=== PATIENT | male | born 1975 | race Caucasian/White ===

== ENCOUNTER 2025-01-13 10:11 | Inpatient (IN) ==
[2025-01-13] MEDS: SODIUM CHLORIDE 0.9% 1,000 ML IV ONE ×2 (10:20→14:16)
--- NOTE | 2025-01-13 10:29 | Emergency Department Note ---
Impression & Plan Unresponsive, Alcohol intoxication, Endotracheally intubated, Elevated lactic acid level ED Provider Note HISTORY OF PRESENT ILLNESS: Patient is a 49-year-old male presenting with unresponsiveness. Patient reportedly was found sleeping in his car in the parking lot at [employer] where he is employed. He had an empty bottle of vodka and an empty bottle of mouthwash next to him. Staff who called [phone] state that they believed that he bought the mouthwash bottle today. Patient has a history of alcohol abuse. Unknown any other history or any other potential coingestions, as patient is unresponsive. Fingerstick was 106 on EMS arrival. Patient's ex- named Toña (phone number [phone]) called the ER after being told he was sent here by patient's boss. She reports that the patient has been "on a crook" for "a while." She states that he has been drinking quite heavily for the last few weeks. She is unsure how much he drinks at a time or per day. ROS: as above PHYSICAL EXAM: Constitutional: Patient appears in no acute distress. Patient smell strongly of alcohol and mint. HENT: Head: Normocephalic and atraumatic. Eyes: Pupils dilated. Mouth/Throat: Mucous membranes moist. Neck: Trachea midline. Neck supple. Cardiovascular: RRR, No murmurs, rubs or gallops. Intact distal pulses. Pulmonary/Chest: No respiratory distress. Breath sounds clear and equal bilaterally. No wheezes or rales. Abdominal: Abdomen soft, no tenderness, rebound or guarding. Musculoskeletal: No edema, tenderness or deformity noted. Skin: Warm and dry. No rash, erythema, pallor or cyanosis Neurological: Patient is unresponsive. GCS of 3. Has no gag reflex present. MDM: - Vitals signs stable - History obtained via EMS, given patient's unresponsiveness. History as above. - Chronic conditions affecting care: Alcohol abuse - Differential diagnoses include, but are not limited to: Intracranial hemorrhage; CVA; alcohol intoxication; drug intoxication; ACS; electrolyte abnormality - Order placed for continuous cardiac monitoring. At this time, monitor showed rate of 85 bpm with normal sinus rhythm, per my interpretation. - External medical records reviewed. - EKG image interpreted by myself showed normal sinus rhythm. Rate 106 bpm. QT 322. No acute ischemic changes. - Laboratory workup interpreted by myself showed normal WBC; normal PT/INR; elevated lactic acid (3.0); elevated anion gap (12); normal troponin; elevated AST (61); elevated alcohol (634.2)- - CXR post intubation shows appropriate placement of the ET tube, per my interpretation. - UA negative for infection - UDS negative - VBG normal - CT head wo contrast negative for acute intracranial hemorrhage. Noted to have subtle diffuse blurring of the lindsey-white interface concerning for potential anoxic ischemic brain injury, per radiology. - Patient given 1L NS post intubation. He was started on propofol for sedation postintubation and required frequent boluses, as he started to move his extremities and start bucking his ET tube after intubation. He was given a 5 mg IV Versed bolus. Patient's blood pressures did trend down and another 500 cc of normal saline was ordered and propofol drip was decreased. - Given patient's endotracheally intubated status, did discuss case with tube cutter operator on-call, Dr. Haney, at 11:56. Patient will be admitted to the ICU with ICU consult service helping to manage his mechanical ventilation. - Discussion was had with dependency case manager about patient's case and need for admission - Hospitalist consulted for admission - Patient admitted to [facility] for further evaluation and management. PROCEDURE: Endotracheal Intubation Indication: Unresponsive; GCS 3. The patient was on 100% oxygen via NRB prior to the procedure. Suction, airway equipment, RSI drugs, respiratory equipment, and appropriate personnel were prepared prior to the initiation of the procedure. A time out was taken. No sedation was applied, given that the patient has no gag reflex. The airway was easily visualized utilizing a S3 glide scope blade. Initially unable to pass the tube secondary to cord spasms, so 100 milligrams IV succinylcholine was pushed for paralysis. A 7.5 size ETT tube was placed atraumatically to 25 cm using standard technique. The cuff inflated without signs of malfunction. On initial assessment, there appeared to be more prominent breath sounds on the right and so the ET tube was retracted to 23 at the lip. There were bilateral breath sounds, positive colormetric change, no gastric sounds, a good capnography waveform, and post procedure pulse oximetry was 98%. Post intubation sedation was administered using propofol. There were no complications. ASSESSMENT AND PLAN: Diagnosis: Unresponsive; alcohol intoxication; endotracheally intubated; elevated lactic acid Plan: Admit Past Med/Surg History Problem List (Updated 01/13/25 @ 12:20 by Missy Tamayo MD) Elevated lactic acid level (Acute) Endotracheally intubated (Acute) Alcohol intoxication (Acute) Unresponsive (Acute) Right inguinal hernia (Acute) Alcohol intoxication (Acute) Altered mental status (Acute) Social History Smoking Status: Unknown if ever smoked Preferred Language: Bel[place] Feels Safe at Home: Yes Allergies Allergies Allergy/AdvReac Type Severity Reaction Status Date / Time No Known Allergies Allergy Unverified 11/25/24 19:48 Home Meds Home Medications Medication Instructions Recorded Confirmed No Known Home Medications 08/09/24 01/13/25 Results & Data (ED) Vital Signs Vital Signs - 24 hr 01/13/25 10:08 01/13/25 10:21 01/13/25 10:27 Temperature 36.4 C L Temperature Source Axillary Pulse Rate 115 H 87 110 H Pulse Rate [Apical] Pulse Rate from SpO2 Sensor Respiratory Rate 8 L Blood Pressure 137/100 Blood Pressure [Right Arm] Blood Pressure Mean 112 Blood Pressure Mean [Right Arm] Blood Pressure Position Lying Blood Pressure Position [Right Arm] Pulse Oximetry 96 98 Oxygen Delivery Method Room Air Mechanical Vent Fraction of Inspired Oxygen 30 SaO2/FiO2 Ratio 326 Sepsis Recent Fever Within 48 Hours No Sepsis New/Unexplained Change in Mental Status N/A Sepsis Action Taken by Nursing No Action Required End-Tidal CO2 01/13/25 10:33 01/13/25 10:58 01/13/25 11:00 Temperature Temperature Source Pulse Rate 80 Pulse Rate [Apical] 94 H Pulse Rate from SpO2 Sensor Respiratory Rate 16 16 Blood Pressure Blood Pressure [Right Arm] 130/98 Blood Pressure Mean Blood Pressure Mean [Right Arm] 108 Blood Pressure Position Blood Pressure Position [Right Arm] Pulse Oximetry 99 97 Oxygen Delivery Method Mechanical Vent Room Air Fraction of Inspired Oxygen 30 30 SaO2/FiO2 Ratio Sepsis Recent Fever Within 48 Hours Sepsis New/Unexplained Change in Mental Status Sepsis Action Taken by Nursing End-Tidal CO2 41 01/13/25 11:12 01/13/25 11:33 01/13/25 11:45 Temperature Temperature Source Pulse Rate 86 92 H 96 H Pulse Rate [Apical] Pulse Rate from SpO2 Sensor 86 93 H 97 H Respiratory Rate 17 13 16 Blood Pressure 130/98 131/90 102/75 Blood Pressure [Right Arm] Blood Pressure Mean 108 103 83 Blood Pressure Mean [Right Arm] Blood Pressure Position Blood Pressure Position [Right Arm] Pulse Oximetry 98 99 98 Oxygen Delivery Method Fraction of Inspired Oxygen SaO2/FiO2 Ratio Sepsis Recent Fever Within 48 Hours Sepsis New/Unexplained Change in Mental Status Sepsis Action Taken by Nursing End-Tidal CO2 39 38 39 01/13/25 11:55 01/13/25 12:03 Temperature Temperature Source Pulse Rate 98 H Pulse Rate [Apical] Pulse Rate from SpO2 Sensor 99 H Respiratory Rate 16 Blood Pressure 99/76 L Blood Pressure [Right Arm] 90/70 L Blood Pressure Mean 83 Blood Pressure Mean [Right Arm] 76 Blood Pressure Position Blood Pressure Position [Right Arm] Lying Pulse Oximetry 98 Oxygen Delivery Method Fraction of Inspired Oxygen SaO2/FiO2 Ratio Sepsis Recent Fever Within 48 Hours Sepsis New/Unexplained Change in Mental Status Sepsis Action Taken by Nursing End-Tidal CO2 38 Laboratory Data 01/13/25 10:31 01/13/25 10:31 Lab Results 01/13/25 01/13/25 01/13/25 Range/Units 10:26 10:31 10:37 WBC 6.58 (4.8-10.8) K/ul RBC 5.03 (4.70-6.10) M/uL Hgb 16.6 (14.0-18.0) g/dl POC Hgb 16.3 (14.0-18.0) g/dl Hct 46.6 (42.0-52.0) % POC Hct 48 (42-52) % MCV 92.6 (80.0-100.0) fL MCH 33.0 (25.0-34.0) pg MCHC 35.6 (32.0-36.0) g/dL RDW Std Deviation 44.4 (36.4-46.3) fL RDW Coeff of Janice 13.1 (11.5-14.5) % Plt Count 294 (130-400) K/uL MPV 7.9 L (9.4-12.4) fL Immature Gran % (Auto) 0.6 % Neut % (Auto) 62.9 % Lymph % (Auto) 26.3 % [place] % (Auto) 8.2 % Eos % (Auto) 0.5 % Baso % (Auto) 1.5 % Neut # (Auto) 4.14 (1.40-6.50) K/uL Lymph # (Auto) 1.73 (1.20-3.40) K/uL [place] # (Auto) 0.54 (0.11-0.59) K/uL Eos # (Auto) 0.03 (0.00-0.50) K/uL Baso # (Auto) 0.10 (0.00-0.20) K/uL Immature Gran # (Auto) 0.04 (0.01-0.20) K/uL PT 10.3 (9.0-12.0) Seconds INR 0.9 (0.9-1.1) VBG pH 7.38 (7.36-7.41) VBG pCO2 50 (38-50) mmHg VBG pO2 53 mmHg VBG HCO3 30 mmol/L VBG O2 Saturation 80.4 % VBG Base Excess 3.4 mEq/L POC Sodium 140 (135-144) mmol/L Sodium 141 (136-145) mmol/L POC Potassium 3.8 (3.3-5.0) mmol/L Potassium 3.6 (3.5-5.1) mmol/L POC Chloride 100 L (101-112) mmol/L Chloride 100 (98-107) mmol/L Carbon Dioxide 29 (21-32) mmol/L POC Total CO2 26 (24-31) mmol/L Anion Gap 12 H (3-11) POC Anion Gap 19.0 (16-25) mmol/L POC BUN 5 L (7-18) mg/dl BUN 7 (6-23) mg/dl Creatinine 0.71 (0.6-1.4) mg/dl POC Creatinine 1.6 H (0.6-1.3) mg/dl Est Cr Clr Drug Dosing Not Reportable eGFR 111.08 BUN/Creatinine Ratio 9.9 L (10-20) Glucose 115 H (70-99(Fasting)) mg/dl POC Glucose (other) 116 H (70-99) mg/dl Lactate 3.0 H* (0.4-2.0) mmol/L Calcium 8.8 (8.6-10.3) mg/dl POC Ioniz Calcium Jed 1.01 L (1.12-1.32) mmol/l Magnesium 2.4 (1.7-2.4) mg/dl Total Bilirubin 0.5 (0.2-1.0) mg/dl AST 61 H (13-39) U/L ALT 49 (7-52) U/L Alkaline Phosphatase 52 (34-104) U/L Troponin I High Sens 5.5 (0-20) pg/ml Total Protein 6.7 (6.0-8.3) gm/dl Albumin 4.5 (3.4-5.0) gm/dl Globulin 2.2 L (2.5-4.0) gm/dl Albumin/Globulin Ratio 2.0 (0.9-2) TSH 1.337 (0.300-4.500) uIu/ml Urine Color Urine Appearance (Clear) Urine pH (4.5-7.5) Ur Specific [place] (1.000-1.030) Urine Protein (Negative) Urine Glucose (UA) (Negative) Urine Ketones (Negative) Urine Blood (Negative) Urine Nitrite (Negative) Urine Bilirubin (Negative) Urine Urobilinogen (Negative) Ur Leukocyte Esterase (Negative) Urine WBC (Auto) (0-5) /hpf Urine RBC (Auto) (0-2) /hpf U Hyaline Cast (Auto) (0-2) /lpf U Epithel Cells (Auto) (0-2) /hpf Urine Bacteria (Auto) (None Seen) Urine Comment Urine Opiates Screen (Neg) Ur Methadone, Qual (Neg) Urine Fentanyl Screen (Neg) Urine Barbiturates (Neg) Ur Phencyclidine (PCP) (Neg) U Amphetamin/Meth Scrn (Neg) MDMA (Ecstasy) Screen (Neg) U Benzodiazepines Scrn (Neg) Ur Cocaine Metabolite (Neg) U Marijuana (THC) Screen (Neg) Ethyl Alcohol mg/dL 634.2 H (<10.0) mg/dl 01/13/25 Range/Units Unknown WBC (4.8-10.8) K/ul RBC (4.70-6.10) M/uL Hgb (14.0-18.0) g/dl POC Hgb (14.0-18.0) g/dl Hct (42.0-52.0) % POC Hct (42-52) % MCV (80.0-100.0) fL MCH (25.0-34.0) pg MCHC (32.0-36.0) g/dL RDW Std Deviation (36.4-46.3) fL RDW Coeff of Janice (11.5-14.5) % Plt Count (130-400) K/uL MPV (9.4-12.4) fL Immature Gran % (Auto) % Neut % (Auto) % Lymph % (Auto) % [place] % (Auto) % Eos % (Auto) % Baso % (Auto) % Neut # (Auto) (1.40-6.50) K/uL Lymph # (Auto) (1.20-3.40) K/uL [place] # (Auto) (0.11-0.59) K/uL Eos # (Auto) (0.00-0.50) K/uL Baso # (Auto) (0.00-0.20) K/uL Immature Gran # (Auto) (0.01-0.20) K/uL PT (9.0-12.0) Seconds INR (0.9-1.1) VBG pH (7.36-7.41) VBG pCO2 (38-50) mmHg VBG pO2 mmHg VBG HCO3 mmol/L VBG O2 Saturation % VBG Base Excess mEq/L POC Sodium (135-144) mmol/L Sodium (136-145) mmol/L POC Potassium (3.3-5.0) mmol/L Potassium (3.5-5.1) mmol/L POC Chloride (101-112) mmol/L Chloride (98-107) mmol/L Carbon Dioxide (21-32) mmol/L POC Total CO2 (24-31) mmol/L Anion Gap (3-11) POC Anion Gap (16-25) mmol/L POC BUN (7-18) mg/dl BUN (6-23) mg/dl Creatinine (0.6-1.4) mg/dl POC Creatinine (0.6-1.3) mg/dl Est Cr Clr Drug Dosing eGFR BUN/Creatinine Ratio (10-20) Glucose (70-99(Fasting)) mg/dl POC Glucose (other) (70-99) mg/dl Lactate (0.4-2.0) mmol/L Calcium (8.6-10.3) mg/dl POC Ioniz Calcium Jed (1.12-1.32) mmol/l Magnesium (1.7-2.4) mg/dl Total Bilirubin (0.2-1.0) mg/dl AST (13-39) U/L ALT (7-52) U/L Alkaline Phosphatase (34-104) U/L Troponin I High Sens (0-20) pg/ml Total Protein (6.0-8.3) gm/dl Albumin (3.4-5.0) gm/dl Globulin (2.5-4.0) gm/dl Albumin/Globulin Ratio (0.9-2) TSH (0.300-4.500) uIu/ml Urine Color Yellow Urine Appearance Clear (Clear) Urine pH 7.0 (4.5-7.5) Ur Specific [place] 1.018 (1.000-1.030) Urine Protein Trace H (Negative) Urine Glucose (UA) Negative (Negative) Urine Ketones Negative (Negative) Urine Blood Negative (Negative) Urine Nitrite Negative (Negative) Urine Bilirubin Negative (Negative) Urine Urobilinogen Negative (Negative) Ur Leukocyte Esterase Negative (Negative) Urine WBC (Auto) 0-5 (0-5) /hpf Urine RBC (Auto) 0-2 (0-2) /hpf U Hyaline Cast (Auto) 0-2 (0-2) /lpf U Epithel Cells (Auto) 0-2 (0-2) /hpf Urine Bacteria (Auto) None Seen (None Seen) Urine Comment Urine Opiates Screen Neg (Neg) Ur Methadone, Qual Neg (Neg) Urine Fentanyl Screen Neg (Neg) Urine Barbiturates Neg (Neg) Ur Phencyclidine (PCP) Neg (Neg) U Amphetamin/Meth Scrn Neg (Neg) MDMA (Ecstasy) Screen Neg (Neg) U Benzodiazepines Scrn Neg (Neg) Ur Cocaine Metabolite Neg (Neg) U Marijuana (THC) Screen Neg (Neg) Ethyl Alcohol mg/dL (<10.0) mg/dl Administered Medications Propofol (Diprivan) 1,000 mg in 100 mls @ 13.755 mls/hr IV .[id number] [facility]; Protocol Stop: 01/16/25 10:44 Last Titration: 01/13/25 12:22 Dose: 20 mcg/kg/min, 7.9 mls/hr Documented By: Titration: 01/13/25 12:03 Dose: 35 mcg/kg/min, 13.8 mls/hr Documented By: Titration: 01/13/25 11:41 Dose: 45 mcg/kg/min, 17.7 mls/hr Documented By: Titration: 01/13/25 11:33 Dose: 40 mcg/kg/min, 15.7 mls/hr Documented By: Titration: 01/13/25 11:28 Dose: 35 mcg/kg/min, 13.8 mls/hr Documented By: Titration: 01/13/25 11:22 Dose: 30 mcg/kg/min, 11.8 mls/hr Documented By: Titration: 01/13/25 11:12 Dose: 25 mcg/kg/min, 9.8 mls/hr Documented By: Titration: 01/13/25 10:58 Dose: 20 mcg/kg/min, 7.9 mls/hr Documented By: Titration: 01/13/25 10:47 Dose: 15 mcg/kg/min, 5.9 mls/hr Documented By: Titration: 01/13/25 10:42 Dose: 10 mcg/kg/min, 3.9 mls/hr Documented By: Admin: 01/13/25 10:36 Dose: 5.09 mcg/kg/min, 2 mls/hr Documented By: ANDRE Co-signed By: MONICA Propofol (Propofol Bolus From Bag) 20 mg IV Q5M PRN PRN Reason: Sedation Stop: 01/16/25 10:42 Last Admin: 01/13/25 11:41 Dose: 20 mg Documented By: MONICA Co-signed By: GCC Admin: 01/13/25 11:33 Dose: 20 mg Documented By: MONICA Co-signed By: GCC Admin: 01/13/25 11:28 Dose: 20 mg Documented By: MONICA Co-signed By: GCC Admin: 01/13/25 11:22 Dose: 20 mg Documented By: MONICA Co-signed By: GCC Admin: 01/13/25 11:12 Dose: 20 mg Documented By: MONICA Co-signed By: GCC Admin: 01/13/25 10:58 Dose: 20 mg Documented By: KR Co-signed By: MONICA Admin: 01/13/25 10:47 Dose: 20 mg Documented By: KR Co-signed By: MONICA Admin: 01/13/25 10:42 Dose: 20 mg Documented By: KR Co-signed By: MONICA Admin: 01/13/25 10:36 Dose: 20 mg Documented By: ANDRE Co-signed By: MONICA Discontinued Medications Sodium Chloride (Nss) 1,000 mls @ 999 mls/hr IV .Q1H1M ONE Stop: 01/13/25 11:28 Last Infusion: 01/13/25 11:30 Dose: Infused Documented By: Admin: 01/13/25 10:20 Dose: 999 mls/hr Documented By: ANDRE Midazolam HCl (Midazolam Hcl 5 Mg/Ml 2ml Vial) 5 mg IV NOW STA Stop: 01/13/25 11:38 Last Admin: 01/13/25 11:39 Dose: 5 mg Documented By: MONICA Miscellaneous (Rapid Sequence Induction Bag) Confirm Administered Dose 1 each N/A .STK-MED ONE Stop: 01/13/25 10:12 Last Admin: 01/13/25 11:02 Dose: Not Given Documented By: ANDRE Propofol (Propofol Iv Emulsion 10 Mg/Ml 100 Ml Vial) Confirm Administered Dose 1,000 mg IV .STK-MED ONE Stop: 01/13/25 10:26 Last Admin: 01/13/25 11:02 Dose: Not Given Documented By: ANDRE Imaging Data Radiologist's Impression: Chest X-Ray 01/13/25 10:27 XR chest 1V portable CLINICAL HISTORY: post intubation COMPARISON STUDY: 05/16/2007 FINDINGS: Endotracheal tube tip is just above the thoracic inlet. Heart size and pulmonary vasculature are normal. No effusion, consolidation, or pneumothorax. IMPRESSION: Endotracheal tube tip is just above the thoracic inlet. ACT 112: Negative or not required by law. Electronically signed by: Manuel Aguilar M.D. 01/13/2025 10:[address] 01/13/25 10:28 CT head/brain wo con CLINICAL HISTORY: 49 years-old Male with unresponsive. Acutely altered mental status TECHNIQUE: Multiple axial CT images of the head were obtained without contrast. A dose lowering technique was utilized adhering to the principles of ALARA. CT DOSE: 625.8 mGy.cm COMPARISON: 05/16/2007 FINDINGS: No acute intracranial hemorrhage, midline shift, intracranial mass, hydrocephalus, or abnormal extra-axial collection. There is equivocal subtle diffuse blurring of the lindsey-white interface. The calvarium is intact. Partially imaged endotracheal tube with nasopharyngeal secretions. The paranasal sinuses, mastoid air cells, and middle ear cavities are clear. IMPRESSION: 1. No acute intracranial hemorrhage, midline shift, hydrocephalus or brain herniation. 2. Equivocal subtle diffuse blurring of the lindsey-white interface suspicious for anoxic ischemic brain injury. ACT 112: Negative or not required by law. The above report was generated using voice recognition software. It may contain grammatical, syntax or spelling errors. Electronically signed by: Terry Bermudez M.D. 01/13/2025 11:39 AM Discharge Plan Visit Data Chief Complaint: Unresponsive Stated Complaint: UNRESPONSIVE ED Provider: Missy Tamayo Discharge Problem: Unresponsive, Alcohol intoxication, Endotracheally intubated, Elevated lactic acid level Condition: Critical Forms Stand Alone Forms: My App[employer] Prescriptions Prescriptions: No Action No Known Home Medications Referrals Referrals: PCP,NO [Primary Care Provider] -
[2025-01-13] MEDS: propofoL 1,000 MG/100 ML VIAL IV SCH (10:36)
[2025-01-13] MEDS: PROPOFOL BOLUS FROM BAG IV PRN (10:36)
[2025-01-13 10:39] LABS: iSTAT Creatinine 1.6 mg/dl (0.6-1.3); iSTAT Hemoglobin 16.3 g/dl (14.0-18.0); iSTAT Ionized Calcium 1.01 mmol/l (1.12-1.32); iSTAT Potassium 3.8 mmol/L (3.3-5.0)
[2025-01-13 10:41] LABS: Base Excess VBG 3.4 mEq/L; HCO3 VBG 30 mmol/L; Oxygen Saturation VBG 80.4 %; PCO2 VBG 50 mmHg (38-50); PO2 VBG 53 mmHg; pH VBG 7.38 (7.36-7.41)
[2025-01-13] MEDS ORDERED: STAT IV Infusion **Titration per Protocol STA (10:43)
--- NOTE | 2025-01-13 10:44 | XRay Report ---
XR chest 1V portable CLINICAL HISTORY: post intubation COMPARISON STUDY: 05/16/2007 FINDINGS: Endotracheal tube tip is just above the thoracic inlet. Heart size and pulmonary vasculatur e are normal. No effusion, consolidation, or pneumothorax. IMPRESSION: Endotracheal tube tip is just above the thoracic inlet. ACT 112: Negative or not required by law. Electronically signed by: Manuel Aguilar M.D. 01/13/2025 10:43 AM
[2025-01-13 10:46] LABS: Basophils % (auto) 1.5 %; Eosinophils # (auto) 0.03 K/uL (0.00-0.50); Eosinophils % (auto) 0.5 %; Hematocrit (blood only) 46.6 % (42.0-52.0); Hemoglobin 16.6 g/dl (14.0-18.0); Immature Granulocytes # (auto) 0.04 K/uL (0.01-0.20); Immature Granulocytes % (auto) 0.6 %; Lymphocytes # (auto) 1.73 K/uL (1.20-3.40); Lymphocytes % (auto) 26.3 %; Mean Corpuscular Hgb Conc 35.6 g/dL (32.0-36.0); Mean Corpuscular Volume 92.6 fL (80.0-100.0); Mean Platelet Volume 7.9 fL (9.4-12.4); Monocytes # (auto) 0.54 K/uL (0.11-0.59); Monocytes % (auto) 8.2 %; Neutrophils # (auto) 4.14 K/uL (1.40-6.50); Neutrophils % (auto) 62.9 %; Platelet Count 294 K/uL (130-400); RDW Coefficient of Variation 13.1 % (11.5-14.5); RDW Standard Deviation 44.4 fL (36.4-46.3); Red Blood Count 5.03 M/uL (4.70-6.10); White Blood Count 6.58 K/ul (4.8-10.8)
[2025-01-13 10:54] LABS: INR 0.9 (0.9-1.1); Prothrombin Time 10.3 Seconds (9.0-12.0)
[2025-01-13] MEDS: RAPID SEQUENCE INDUCTION BAG ONE (11:02)
[2025-01-13] MEDS: PROPOFOL IV EMULSION 10 MG/ML 100 ML VIAL IV ONE (11:02)
[2025-01-13 11:11] LABS: Appearance Urine Clear (Clear); Bacteria Urine Automated None Seen (None Seen); Bilirubin Urine Negative (Negative); Blood Urine Negative (Negative); Cast Urine Automated 0-2 /lpf (0-2); Color Urine Yellow; Epithelial Cell Urine Auto 0-2 /hpf (0-2); Glucose Urine UA Negative (Negative); Ketones Urine Negative (Negative); Leukocyte Esterase Urine Negative (Negative); Nitrite Urine Negative (Negative); Protein Urine Trace (Negative); RBC Urine Automated 0-2 /hpf (0-2); Specific Gravity Urine 1.018 (1.000-1.030); Urobilinogen Urine Negative (Negative); WBC Urine Automated 0-5 /hpf (0-5)
[2025-01-13 11:12] LABS: Albumin Level 4.5 gm/dl (3.4-5.0); Anion Gap 12 (3-11); Bilirubin,Total 0.5 mg/dl (0.2-1.0); Calcium 8.8 mg/dl (8.6-10.3); Carbon Dioxide 29 mmol/L (21-32); Chloride 100 mmol/L (98-107); Magnesium 2.4 mg/dl (1.7-2.4); Potassium 3.6 mmol/L (3.5-5.1); Sodium 141 mmol/L (136-145)
[2025-01-13 11:18] LABS: Alanine Aminotransferase 49 U/L (7-52); Alkaline Phosphatase 52 U/L (34-104); Aspartate Aminotransferase 61 U/L (13-39); BUN Creatinine Ratio 9.9 (10-20); Blood Urea Nitrogen 7 mg/dl (6-23); Globulin 2.2 gm/dl (2.5-4.0); Glucose 115 mg/dl (70-99(Fasting)); Total Protein 6.7 gm/dl (6.0-8.3)
[2025-01-13 11:28] LABS: Troponin I High Sensitivity 5.5 pg/ml (0-20)
[2025-01-13 11:38] LABS: Thyroid Stimulating Hormone 1.337 uIu/ml (0.300-4.500)
[2025-01-13] MEDS: MIDAZOLAM HCL 5 MG/ML 2ML VIAL IV STA (11:39)
--- NOTE | 2025-01-13 11:40 | CT Scan Report ---
CT head/brain wo con CLINICAL HISTORY: 49 years-old Male with unresponsive. Acutely altered mental status TECHNIQUE: Multiple axial CT images of the head were obtained without contrast. A dose lowering tech nique was utilized adhering to the principles of ALARA. CT DOSE: 625.8 mGy.cm COMPARISON: 05/16/2007 FINDINGS: No acute intracranial hemorrhage, midline shift, intracranial mass, hydrocephalus, or abnormal extra- axial collection. There is equivocal subtle diffuse blurring of the lindsey-white interface. The calvarium is intact. Partially imaged endotracheal tube with nasopharyngeal secretions. The paran leonie sinuses, mastoid air cells, and middle ear cavities are clear. IMPRESSION: 1. No acute intracranial hemorrhage, midline shift, hydrocephalus or brain herniation. 2. Equivocal subtle diffuse blurring of the lindsey-white interface suspicious for anoxic ischemic brain injury. ACT 112: Negative or not required by law. The above report was generated using voice recognition software. It may contain grammatical, syntax o r spelling errors. Electronically signed by: Terry Bermudez M.D. 01/13/2025 11:39 AM
[2025-01-13 11:54] LABS: Amphetamines+Metham, Urine Neg (Neg); Barbiturates, Urine Neg (Neg); Benzodiazepine, Urine Neg (Neg); Cocaine, Urine Neg (Neg); Fentanyl, Urine Neg (Neg); MDMA (Ecstacy), Urine Neg (Neg); Marijuana, Urine Neg (Neg); Methadone, Urine Neg (Neg); Opiate, Urine Neg (Neg); Phencyclidine, Urine Neg (Neg)
[2025-01-13] MEDS: SODIUM CHLORIDE 0.9% 500 ML IV ONE (12:26)
--- NOTE | 2025-01-13 12:48 | History & Physical Report ---
<Statement entered by Jayjay Welch, DO - 01/13/25 13:42> I have seen and examined the patient and have discussed the case with the advance practice provider. I have reviewed the advanced practitioner's documentation, and I agree with, and take responsibility for that plan of care. Patient seen and evaluated while still in the ED. Patient sedated and on the ventilator. Vital signs reviewed HEENT: Intubated Lungs: Decreased, no wheezes CV: S1-S2 Patient with severe alcohol intoxication with concern for anoxic brain injury and metabolic encephalopathy. 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 Date of Service January 13, 2025 Assessment & Plan (1) Respiratory failure requiring intubation: Plan: 49 year old male with unknown medical history presenting with unresponsiveness, GCS 3, negative gag reflex. He was found unresponsive in his car at [facility]'s parking lot; discovered by his co-workers who reported patient has history of alcohol abuse. Empty bottle of vodka and Listerine found in the car. Transferred here via EMS. Respiratory failure requiring intubation 2/2 metabolic encephalopathy and alcohol intoxication: * Admit to ICU for further management of ventilatory support * Continue ventilatory support with Propofol- wean as tolerated for extubation * Initiate AWSS when weaning sedation # Elevated Lactic acid level: * Initial lactate 3.0 and trended down with ventilatory support * Trend per ICU protocol # Anoxic brain injury: * CT Brain showing anoxic brain injury without hemorrhage, midline shift, hydrocephalus or brain herniation; unclear etiology * Possible injury with alcohol intoxication- patient with nasal bridge injury * Consider further imaging once stable DVT Ppx: SCDs ordered and defer to ICU for additional DVT ppx Code status: Full code PCP: No PCP Dispo: Admit to ICU Patient seen in collaboration with Dr. Welch. I spent a total of 45 minutes co ordinating, documenting and providing care for this patient excluding time spent in the performance of separately billed services or time spent by another provider/QHP. (2) Toxic metabolic encephalopathy: (3) Alcohol intoxication: (4) Elevated lactic acid level: (5) Anoxic brain injury: History of Present Illness Primary Care Provider: NO PCP 49 year old male with unknown medical history presenting with unresponsiveness, GCS 3, negative gag reflex. He was found unresponsive in his car at [facility] parking lot; discovered by his co-workers who reported patient has history of alcohol abuse. Empty bottle of vodka and Listerine found in the car. Transferred here via EMS. In the emergency department, he had a GCS 3 with negative gag reflex and immediately intubated. Propofol started and titrated. IV fluids ~500 given. BP's in 80-90's/70's. Lactate elevated at 3. Urine ETOH elevated 634. Head CT showing no acute intracranial hemorrhage, midline shift, hydrocephalus or brain herniation; equivocal subtle diffuse blurring of the lindsey-white interface suspicious for anoxic ischemic brain injury. EKG showing possible ectopy, atrial tachycardia with vent rate 103, QTc 427. Patient without family or surrogate at the bedside. History obtained from clinical record. Allergies Allergy/AdvReac Type Severity Reaction Status Date / Time No Known Allergies Allergy Unverified 11/25/24 19:48 Home Medications Medication Instructions Recorded Confirmed Type No Known Home Medications 08/09/24 01/13/25 History Past Med/Surg History Problem List (Updated 01/13/25 @ 13:06 by LUCAS Mercedes) Anoxic brain injury Toxic metabolic encephalopathy Respiratory failure requiring intubation Elevated lactic acid level (Acute) Endotracheally intubated (Acute) Alcohol intoxication (Acute) Unresponsive (Acute) Right inguinal hernia (Acute) Alcohol intoxication (Acute) Altered mental status (Acute) Social History Smoking Status: Unknown if ever smoked Preferred Language: Guatemalan Feels Safe at Home: Yes Review of Systems Review of Systems: Unobtainable due to endotracheal tube Physical Exam Physical Exam: VITALS: Reviewed. WEIGHT/BMI reviewed. GEN: Well-developed. HEENT -Head: NC/AT; nasal bridge injury -Ears: External ears are normal. Normal TMs. -Nose: Normal nares. -Mouth and throat: MMM. Normal gums, muc dyana, palate NECK: Supple, with no masses. CV: Regular rate. S1, S2 without murmur,rubs, gallops. LUNGS: Clear and equal bilaterally. ETT intact with ventilatory support. Symmetric chest rise ABD: Soft, nondistended, Active bowel sounds, no masses or organomegaly. : N/A SKIN: Warm, well perfused. laceration nose. MSK: No apparent deformities or joint swelling. EXT: No clubbing, cyanosis, or edema. NEURO: Unable to determine d/t altered level of consciousness with sedation Propofol Results & Data Results & Data Vital Signs (Past 12 Hours) Vital Signs Temp Pulse Pulse Resp BP BP Pulse Ox 01/13/25 12:22 88 16 88/71 L 97 01/13/25 12:22 88/71 L 01/13/25 12:18 89 16 91/72 L 97 01/13/25 12:03 90/70 L 01/13/25 12:00 91 H 16 90/70 L 97 01/13/25 11:55 98 H 16 99/76 L 98 01/13/25 11:45 96 H 16 102/75 98 01/13/25 11:33 92 H 13 131/90 99 01/13/25 11:12 86 17 130/98 98 01/13/25 11:00 94 H 16 130/98 97 01/13/25 10:58 80 16 99 01/13/25 10:33 01/13/25 10:27 110 H 98 01/13/25 10:21 87 01/13/25 10:08 36.4 C L 115 H 8 L 137/100 96 O2 Del Method FiO2 01/13/25 12:22 01/13/25 12:22 01/13/25 12:18 01/13/25 12:03 01/13/25 12:00 01/13/25 11:55 01/13/25 11:45 01/13/25 11:33 01/13/25 11:12 01/13/25 11:00 Room Air 01/13/25 10:58 30 01/13/25 10:33 Mechanical Vent 30 01/13/25 10:27 Mechanical Vent 30 01/13/25 10:21 01/13/25 10:08 Room Air Laboratory Results Short CBC 01/13/25 Range/Units 10:31 WBC 6.58 (4.8-10.8) K/ul Hgb 16.6 (14.0-18.0) g/dl Hct 46.6 (42.0-52.0) % Plt Count 294 (130-400) K/uL BMP 01/13/25 10:31 Sodium 141 Potassium 3.6 Chloride 100 Carbon Dioxide 29 BUN 7 Creatinine 0.71 Glucose 115 H Calcium 8.8 Liver Function 01/13/25 Range/Units 10:31 Total Bilirubin 0.5 (0.2-1.0) mg/dl AST 61 H (13-39) U/L ALT 49 (7-52) U/L Alkaline Phosphatase 52 (34-104) U/L Albumin 4.5 (3.4-5.0) gm/dl Urine 01/13/25 Range/Units Unknown Urine Color Yellow Urine Appearance Clear (Clear) Urine pH 7.0 (4.5-7.5) Ur Specific [place] 1.018 (1.000-1.030) Urine Protein Trace H (Negative) Urine Glucose (UA) Negative (Negative) Diagnostic Findings Chest X-Ray 01/13/25 10:27 XR chest 1V portable CLINICAL HISTORY: post intubation COMPARISON STUDY: 05/16/2007 FINDINGS: Endotracheal tube tip is just above the thoracic inlet. Heart size and pulmonary vasculature are normal. No effusion, consolidation, or pneumothorax. IMPRESSION: Endotracheal tube tip is just above the thoracic inlet. ACT 112: Negative or not required by law. Electronically signed by: Manuel Aguilar M.D. 01/13/2025 10:[address] 01/13/25 10:28 CT head/brain wo con CLINICAL HISTORY: 49 years-old Male with unresponsive. Acutely altered mental status TECHNIQUE: Multiple axial CT images of the head were obtained without contrast. A dose lowering technique was utilized adhering to the principles of ALARA. CT DOSE: 625.8 mGy.cm COMPARISON: 05/16/2007 FINDINGS: No acute intracranial hemorrhage, midline shift, intracranial mass, hydrocephalus, or abnormal extra-axial collection. There is equivocal subtle diffuse blurring of the lindsye-white interface. The calvarium is intact. Partially imaged endotracheal tube with nasopharyngeal secretions. The paranasal sinuses, mastoid air cells, and middle ear cavities are clear. IMPRESSION: 1. No acute intracranial hemorrhage, midline shift, hydrocephalus or brain herniation. 2. Equivocal subtle diffuse blurring of the lindsey-white interface suspicious for anoxic ischemic brain injury. ACT 112: Negative or not required by law. The above report was generated using voice recognition software. It may contain grammatical, syntax or spelling errors. Electronically signed by: Terry Bermudez M.D. 01/13/2025 11:39 AM Code Status & VTE Plan VTE Prophylaxis Plan VTE Prophylaxis will be ordered: Yes
--- NOTE | 2025-01-13 13:23 | Electrocardiogram Report ---
Test Reason : Blood Pressure : */* mmHG Vent. Rate : 106 BPM Atrial Rate : 106 BPM P-R Int : 120 ms QRS Dur : 84 ms QT Int : 322 ms P-R-T Axes : -56 85 24 degrees QTcB Int : 427 ms Unusual P axis, possible ectopic atrial tachycardia Septal infarct , age undetermined Abnormal ECG When compared with ECG of 09-Aug-2024 09:49, Ectopic atrial rhythm has replaced Sinus rhythm Confirmed by Andrew Griffin ([id number]) on 01/13/2025 1:22:42 PM Referred By: Confirmed By: Andrew Griffin
--- NOTE | 2025-01-13 13:38 | Critical Care Consultation ---
Date of Consultation January 13, 2025 Assessment & Plan (1) Toxic metabolic encephalopathy: (2) Respiratory failure requiring intubation: (3) Elevated lactic acid level: (4) Alcohol intoxication: (5) Unresponsive: Plan Jace Kamara 49-year-old male with past medical history of alcohol use disorder but otherwise no other known medical history; who presented to [facility] on 01/13/2025 after being found unresponsive in car with acute alcohol toxicity. Neuro: Acute Encephalopathy related to acute alcohol toxicity -Blood alcohol level 634 -Tox screen negative -GCS improved and patient extubated Concern for alcohol withdrawal CIWA protocol started CV: -No acute issues -SR w/o ischemia -Hemodynamically stable Pulm: Acute respiratory failure related to inability to protect airway from severe encephalopathy -Patient intubated in ED for GCS of 3. -Vent settings: VC-AC [id number] -Extubated shortly after arrival to ICU on room air. Spo2 > 92%. GI: Dysphagia; FEN -Bedside swallow eval prior to PO intake once extubated -If fails bedside eval then speech therapy consult. -MIVF : -No acute issues -Lira in place -Creatinine 0.71. BUN 7 -Monitor Heme: -No acute issue -Monitor CBC qam Endo: Possible stress hyperglycemia -BG 115-120 -Monitor and start insulin as appropriate ID: -WBC 6.58 -Afebrile -Monitor fever curve, culture, and treat as appropriate. Prophylaxis: -GI prophylaxis not indicated -DVT prophylaxis with Lovenox -SCD for mechanical DVT prophylaxis. Disposition: ICU for continued evaluation and management of acute alcohol toxicity with encephalopathy requiring mechanical ventilation and risk of withdrawal. Patient full code. Patient updated to plan of care by ICU provider on 01/13/2025. Patient states that he does not have anyone he wants notified or updated regarding his status. Patient does have an Ex who called regarding his status in the ED. Supervising Physician Co-Signing Physician Notes I saw and evaluated the patient with LUCAS Ramirez, and agree with findings and plan as documented in the note. 49-year-old male was admitted to the hospital for altered mental status Past medical history: Alcohol abuse Patient was intubated in the ER for GCS of 3. And sent to the ICU for further care Patient's mental status significantly improved after being intubated. He was on sedation but answering all the questions appropriately and following the commands. His initial alcohol level was 636 which is significantly elevated. Plan was made to extubate him as only reason for intubation was GCS of 3 which has significantly improved now. After extubation patient was resting comfortably in the room. Heart rate was in the low 90s. Respiratory rate in the mid to high teens. Systolic blood pressure in the 120s. Saturating 96-97% on room air. Was answering all the questions appropriately Denied any chest pain, no shortness of breath, no abdominal pain. No unusual headache or blurry vision. Constitutional: No acute distress HEENT: EOMI, PERRLA Respiratory system: Decreased air entry bilaterally, no wheeze, no rhonchi, mild crackles bilateral lower lobes CVS: S1-S2 positive, no murmurs or gallops, tachycardia Abdomen: Soft, nontender, nondistended, positive bowel sounds x4 Extremities: +2 pulses bilaterally radialis/ dorsalis pedis, no cyanosis, no edema Neuro: Awake alert oriented x3 Psych: Normal mood and affect G/U: Positive Lira Plan: Patient successfully extubated He came in with alcohol intoxication. He is at high risk for DTs in the near future Would recommend to continue with CIWA protocol NS show CT of the head showed possible anoxic brain injury but there is no true patient is answering all the questions appropriately. There is high probability that patient might need want to sign out AMA. He drinks 1 pint of vodka on a daily basis. Case was discussed with primary team I have personally spent 59 minutes of critical care time in the direct management of this patient. This is a life/limb threatening event. This includes time spent evaluating patient, direct bedside care, chart review, placing orders, interpretation of diagnostic studies, discussion with consultants, patient, and family members, as well as other required patient management activities. This time is exclusive of all separately billable procedures, and teaching time and separate from and in addition to any other critical care service time. Please note the above document was generated using voice recognition software. It may contain grammatical, syntax or spelling errors. History of Present Illness Reason for Consultation: Acute alcohol intoxication causing encephalopathy requiring mechanical ventilation. History of Present Illness Jace Kamara 49-year-old male with past medical history of alcohol use disorder but otherwise no other known medical history; who presented to [facility] on 01/13/2025 after being found unresponsive in car. Of note the patient was recently seen and discharged from [facility] on 11/25/2024 with acute alcohol intoxication and at the time the patient admitted to drinking roughly 1 pint of vodka per day. On 01/13/2025 the patient's coworkers found the patient unresponsive in [facility]'s parking lo. EMS was called and the patient was brought to [facility] ED. On evaluation GCS was noted to be 3 and the patient was intubated for airway protection. Patient started on propofol gtt post intubation. EKG performed with no ischemic changes noted. CT head w/o contrast showed no acute intracranial abnormality. Labs revealed an alcohol level of 634. Lactate initially 3 but after 1.5 liters of crystalloid downtrended to 2.7. Patient brought to the ICU for continued evaluation and management of acute alcohol toxicity with encephalopathy requiring mechanical ventilation and risk of withdrawal. Allergies Allergy/AdvReac Type Severity Reaction Status Date / Time No Known Allergies Allergy Unverified 11/25/24 19:48 Home Medications Medication Instructions Recorded Confirmed Type No Known Home Medications 08/09/24 01/13/25 History Patient History Social History Smoking Status: Never smoker Hx Alcohol Use: Yes Alcohol type: hard liquor Hx Substance Use: No Preferred Language: Slovenian Communication Ability: Effective Technical Aid Required: No Beliefs That Will Affect Care: None Current Living Situation: Alone Feels Safe at Home: Yes Safety Concerns: Feels Safe At This Time Assistive Devices: None Review of Systems 2 Review of Systems: Unobtainable due to endotracheal tube and Unobtainable due to reduced consciousness Physical Exam 2 Physical Exam: VITALS: Reviewed. WEIGHT/BMI reviewed. GEN: Patient lying in bed intubated, sedated, and in no apparent distress. HEENT: NC/AT; eyes with anisocoria L>R but brisk, Normal nares. NECK: Supple, with no masses. trachea midline. CV: RRR, no m/r/g. S1/S2 present. LUNGS: CTAB, no w/r/c. Chest rise symmetrical. ABD: Soft, NT/ND, NBS, no masses or organomegaly. : Lira in place draining yellow clear urine. SKIN: Warm, well perfused. No skin rashes or abnormal lesions. MSK: No deformities EXT: No clubbing, cyanosis, or edema. NEURO: Sedated, spontaneously moving all extremities 5/5, opening eyes with stim. Results & Data Results & Data Vital Signs (Past 12 Hours) Vital Signs Temp Pulse Pulse Resp BP BP Pulse Ox 01/13/25 12:35 16 95/69 L 98 01/13/25 12:35 83 16 98 01/13/25 12:22 88 16 88/71 L 97 01/13/25 12:22 88/71 L 01/13/25 12:18 89 16 91/72 L 97 01/13/25 12:03 90/70 L 01/13/25 12:00 91 H 16 90/70 L 97 01/13/25 11:55 98 H 16 99/76 L 98 01/13/25 11:45 96 H 16 102/75 98 01/13/25 11:33 92 H 13 131/90 99 01/13/25 11:12 86 17 130/98 98 01/13/25 11:00 94 H 16 130/98 97 01/13/25 10:58 80 16 99 01/13/25 10:33 01/13/25 10:27 110 H 98 01/13/25 10:21 87 01/13/25 10:08 36.4 C L 115 H 8 L 137/100 96 O2 Del Method FiO2 01/13/25 12:35 Mechanical Vent 01/13/25 12:35 Mechanical Vent 01/13/25 12:22 01/13/25 12:22 01/13/25 12:18 01/13/25 12:03 01/13/25 12:00 01/13/25 11:55 01/13/25 11:45 01/13/25 11:33 01/13/25 11:12 01/13/25 11:00 Room Air 01/13/25 10:58 30 01/13/25 10:33 Mechanical Vent 30 01/13/25 10:27 Mechanical Vent 30 01/13/25 10:21 01/13/25 10:08 Room Air Laboratory Results 01/13/25 10:31 01/13/25 10:31 Abnormal Lab Results 01/13/25 01/13/25 01/13/25 10:26 10:31 10:37 WBC 6.58 RBC 5.03 Hgb 16.6 POC Hgb 16.3 Hct 46.6 POC Hct 48 MCV 92.6 MCH 33.0 MCHC 35.6 RDW Std Deviation 44.4 RDW Coeff of Janice 13.1 Plt Count 294 MPV 7.9 L Immature Gran % (Auto) 0.6 Neut % (Auto) 62.9 Lymph % (Auto) 26.3 [place] % (Auto) 8.2 Eos % (Auto) 0.5 Baso % (Auto) 1.5 Neut # (Auto) 4.14 Lymph # (Auto) 1.73 [place] # (Auto) 0.54 Eos # (Auto) 0.03 Baso # (Auto) 0.10 Immature Gran # (Auto) 0.04 PT 10.3 INR 0.9 VBG pH 7.38 VBG pCO2 50 VBG pO2 53 VBG HCO3 30 VBG O2 Saturation 80.4 VBG Base Excess 3.4 POC Sodium 140 Sodium 141 POC Potassium 3.8 Potassium 3.6 POC Chloride 100 L Chloride 100 Carbon Dioxide 29 POC Total CO2 26 Anion Gap 12 H POC Anion Gap 19.0 POC BUN 5 L BUN 7 Creatinine 0.71 POC Creatinine 1.6 H Est Cr Clr Drug Dosing Not Reportable eGFR 111.08 BUN/Creatinine Ratio 9.9 L Glucose 115 H POC Glucose (other) 116 H Lactate 3.0 H* Calcium 8.8 POC Ioniz Calcium Jed 1.01 L Magnesium 2.4 Total Bilirubin 0.5 AST 61 H ALT 49 Alkaline Phosphatase 52 Troponin I High Sens 5.5 Total Protein 6.7 Albumin 4.5 Globulin 2.2 L Albumin/Globulin Ratio 2.0 TSH 1.337 Urine Color Urine Appearance Urine pH Ur Specific [place] Urine Protein Urine Glucose (UA) Urine Ketones Urine Blood Urine Nitrite Urine Bilirubin Urine Urobilinogen Ur Leukocyte Esterase Urine WBC (Auto) Urine RBC (Auto) U Hyaline Cast (Auto) U Epithel Cells (Auto) Urine Bacteria (Auto) Urine Comment Urine Opiates Screen Ur Methadone, Qual Urine Fentanyl Screen Urine Barbiturates Ur Phencyclidine (PCP) U Amphetamin/Meth Scrn MDMA (Ecstasy) Screen U Benzodiazepines Scrn Ur Cocaine Metabolite U Marijuana (THC) Screen Ethyl Alcohol mg/dL 634.2 H 01/13/25 01/13/25 12:31 Unknown WBC RBC Hgb POC Hgb Hct POC Hct MCV MCH MCHC RDW Std Deviation RDW Coeff of Janice Plt Count MPV Immature Gran % (Auto) Neut % (Auto) Lymph % (Auto) [place] % (Auto) Eos % (Auto) Baso % (Auto) Neut # (Auto) Lymph # (Auto) [place] # (Auto) Eos # (Auto) Baso # (Auto) Immature Gran # (Auto) PT INR VBG pH VBG pCO2 VBG pO2 VBG HCO3 VBG O2 Saturation VBG Base Excess POC Sodium Sodium POC Potassium Potassium POC Chloride Chloride Carbon Dioxide POC Total CO2 Anion Gap POC Anion Gap POC BUN BUN Creatinine POC Creatinine Est Cr Clr Drug Dosing eGFR BUN/Creatinine Ratio Glucose POC Glucose (other) Lactate 2.7 H* Calcium POC Ioniz Calcium Jed Magnesium Total Bilirubin AST ALT Alkaline Phosphatase Troponin I High Sens Total Protein Albumin Globulin Albumin/Globulin Ratio TSH Urine Color Yellow Urine Appearance Clear Urine pH 7.0 Ur Specific [place] 1.018 Urine Protein Trace H Urine Glucose (UA) Negative Urine Ketones Negative Urine Blood Negative Urine Nitrite Negative Urine Bilirubin Negative Urine Urobilinogen Negative Ur Leukocyte Esterase Negative Urine WBC (Auto) 0-5 Urine RBC (Auto) 0-2 U Hyaline Cast (Auto) 0-2 U Epithel Cells (Auto) 0-2 Urine Bacteria (Auto) None Seen Urine Comment Urine Opiates Screen Neg Ur Methadone, Qual Neg Urine Fentanyl Screen Neg Urine Barbiturates Neg Ur Phencyclidine (PCP) Neg U Amphetamin/Meth Scrn Neg MDMA (Ecstasy) Screen Neg U Benzodiazepines Scrn Neg Ur Cocaine Metabolite Neg U Marijuana (THC) Screen Neg Ethyl Alcohol mg/dL Diagnostic Findings Chest X-Ray 01/13/25 10:27 XR chest 1V portable CLINICAL HISTORY: post intubation COMPARISON STUDY: 05/16/2007 FINDINGS: Endotracheal tube tip is just above the thoracic inlet. Heart size and pulmonary vasculature are normal. No effusion, consolidation, or pneumothorax. IMPRESSION: Endotracheal tube tip is just above the thoracic inlet. ACT 112: Negative or not required by law. Electronically signed by: Manuel Aguilar M.D. 01/13/2025 10:[address] 01/13/25 10:28 CT head/brain wo con CLINICAL HISTORY: 49 years-old Male with unresponsive. Acutely altered mental status TECHNIQUE: Multiple axial CT images of the head were obtained without contrast. A dose lowering technique was utilized adhering to the principles of ALARA. CT DOSE: 625.8 mGy.cm COMPARISON: 05/16/2007 FINDINGS: No acute intracranial hemorrhage, midline shift, intracranial mass, hydrocephalus, or abnormal extra-axial collection. There is equivocal subtle diffuse blurring of the lindsey-white interface. The calvarium is intact. Partially imaged endotracheal tube with nasopharyngeal secretions. The paranasal sinuses, mastoid air cells, and middle ear cavities are clear. IMPRESSION: 1. No acute intracranial hemorrhage, midline shift, hydrocephalus or brain herniation. 2. Equivocal subtle diffuse blurring of the lindsey-white interface suspicious for anoxic ischemic brain injury. ACT 112: Negative or not required by law. The above report was generated using voice recognition software. It may contain grammatical, syntax or spelling errors. Electronically signed by: Terry Bermudez M.D. 01/13/2025 11:39 AM Coding Level of Care Code 09446 CRITICAL CARE 1ST 30-74M Diagnoses Toxic metabolic encephalopathy G92.8 Respiratory failure requiring intubation J96.90 Elevated lactic acid level R79.89 Alcoholic intoxication without complication F10.920 Complication of substance-induced condition: uncomplicated Unresponsive R41.89 (4) Alcohol intoxication Complication of substance-induced condition: uncomplicated Qualified Code(s): F10.920 - Alcohol use, unspecified with intoxication, uncomplicated
[2025-01-13] MEDS ORDERED: Ativan IV Alcohol Withdrawal--Active Protocol IV PRN (13:43)
[2025-01-13] MEDS ORDERED: GABAPENTIN 1200MG ALCOHOL WITHDRAWAL LOAD PO STA (13:43)
[2025-01-13] MEDS ORDERED: ACETAMINOPHEN 325 MG TAB PO PRN (13:47)
[2025-01-13] MEDS ORDERED: SODIUM CHLORIDE 0.9% 1,000 ML IV SCH (13:47)
[2025-01-13] MEDS ORDERED: LORazepam 2 MG/1 ML VIAL IV PRN ×3 (13:49)
[2025-01-13] MEDS ORDERED: GABAPENTIN 600 MG TAB PO STA (13:57)
[2025-01-13] MEDS: THIAMINE HCL 200 MG in SODIUM CHLORIDE 0.9% 50 ML IV STA (14:18)
[2025-01-13] MEDS: FOLIC ACID 1 MG in SYRINGE 9.8 ML IV STA (14:18)
--- NOTE | 2025-01-13 15:36 | Discharge Summary ---
Discharge Summary Date of Service January 13, 2025 Principal Dx & Hospital Course #1 = Principal Diagnosis (1) Respiratory failure requiring intubation: (2) Toxic metabolic encephalopathy: (3) Alcohol intoxication: (4) Elevated lactic acid level: (5) Anoxic brain injury: Plan Patient 49-year-old gentleman with known history of alcohol misuse brought to the emergency room unresponsive and was found to be severely intoxicated with alcohol. Patient was intubated in the ED for airway protection and due to his severe altered mental status. The patient was maintained on the ventilator in the emergency department. [facility] services consulted for admission. Patient was admitted to the ICU. As she was in the ICU robotic toy inventor team took over his care and management of the ventilator. He was titrated off the propofol and was extubated. With extubation he was awake alert and responsive. He had no evidence of any type of deficits from possible anoxic brain injury that was seen on CT scan. The patient was adamant that he did not want to stay and was requesting to sign out AGAINST MEDICAL ADVICE. I evaluated the patient the bedside. He is awake he is alert he is oriented. He can give a history. He states that he drank an excessive amount of vodka and Listerine in a short period of time. He has no interest in stopping drinking at this time. He states that he never had any type of withdrawal seizures but has had shakes and tremors when he tried to cut back. He requested that I not call his ex-. He states he has no one to come pick him up. He states he will walk home. He is quite confident that he is able to do this. I spent some time at the bedside explaining to him my grave concern for him to have severe withdrawal symptoms. I explained to him delirium tremens and seizures that can be caused from alcohol withdrawal. Explained that these can be severe and even end in . He understood these risks. He was able to teach back to me that he was at risk for withdrawal seizures. However he was quite sure that this would not happen at due to the fact that it has never happened in the past. He is willing to sign an AMA form. I asked him if he was interested in any type of rehab. He decline d this at this time. Will ask social services director to come by hopefully before he leaves and give him information on community support services for alcohol dependence. I gave him instructions that should he start to have withdrawal symptoms he should call 911 or return immediately to the ED. Notes For Next Care Provider Medication Changes From Visit None Admission HPI Per Admitting Provider 49 year old male with unknown medical history presenting with unresponsiveness, GCS 3, negative gag reflex. [facility]; discovered by his co-workers who reported patient has history of alcohol abuse. Empty bottle of vodka and Listerine found in the car. Transferred here via EMS. In the emergency department, he had a GCS 3 with negative gag reflex and immediately intubated. Propofol started and titrated. IV fluids ~500 given. BP's in 80-90's/70's. Lactate elevated at 3. Urine ETOH elevated 634. Head CT showing no acute intracranial hemorrhage, midline shift, hydrocephalus or brain herniation; equivocal subtle diffuse blurring of the lindsey-white interface suspicious for anoxic ischemic brain injury. EKG showing possible ectopy, atrial tachycardia with vent rate 103, QTc 427. Patient without family or surrogate at the bedside. History obtained from clinical record. Admission Exam Per Admitting Provider See H&P Discharge Exam Constitutional: Alert HEENT: Mucous membranes moist. Lungs: Clear to auscultation, decreased, no wheezes rales or rhonchi CV: S1-S2, regular Abdomen: Soft, nontender, nondistended Extremities: No significant edema Neuro: No focal deficits, moving all 4 extremities, no slurred speech, Psych: Cooperative, normal mood, oriented, understanding consequences of his decisions Updated Medication List Medication Instructions Recorded Confirmed Type No Known Home Medications 08/09/24 01/13/25 History Hospital Stay Data Consultations 01/13/25 12:11 Consult Strategic Partnership Specialist Stat ED Decision to Admit Stat 01/13/25 12:35 Consult [employer] Partnership Specialist Routine Diagnostic Imagining Performed 01/13/25 10:28 CT head/brain wo con Stat Reviewed imaging, laboratory and diagnostic studies. Pertinent findings as below. Lactate decreased to 2.7 Pending Results Patient Have Any Pending Studies at Discharge: No Discharge Instructions Given to Patient (Per Discharging Provider) Instructed to return to ED/call 911 if starts to have any type of withdrawal symptoms. Total Time Total Time Spent Total Time Spent (In Minutes): 35
[2025-01-13] MEDS ORDERED: ICU Protocol for HYPERglycemia SCH (16:30)
[2025-01-13] MEDS ORDERED: GABAPENTIN 600 MG TAB PO SCH (20:00)
[2025-01-14] MEDS ORDERED: THIAMINE HCL 200 MG in SODIUM CHLORIDE 0.9% 50 ML IV SCH (09:00)
[2025-01-14] MEDS ORDERED: FOLIC ACID 1 MG in SYRINGE 9.8 ML IV SCH (09:00)
[2025-01-14] MEDS ORDERED: GABAPENTIN 600 MG TAB PO SCH (14:00)
[2025-01-15] MEDS ORDERED: GABAPENTIN 600 MG TAB PO SCH (18:00)
[2025-01-17] MEDS ORDERED: GABAPENTIN 600 MG TAB PO SCH (06:00)
== END 2025-01-13 16:03 | disposition left against medical advice (07) | DRG 894 ==
LOC: ED 10:11 → 1E 12:35

== ENCOUNTER 2025-04-06 17:18 | Inpatient (IN) ==
[2025-04-06] MEDS: LORazepam 1 MG/1 ML SYR ED Inj Use IV STA (17:38)
[2025-04-06] MEDS: SODIUM CHLORIDE 0.9% 1,000 ML IV SCH ×3 (17:39→22:29)
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
[2025-04-06 17:54] LABS: Base Excess VBG 7.0 mEq/L; HCO3 VBG 30 mmol/L; Oxygen Saturation VBG 81.0 %; PCO2 VBG 37 mmHg (38-50); PO2 VBG 47 mmHg; pH VBG 7.52 (7.36-7.41)
[2025-04-06 17:56] LABS: Hematocrit (blood only) 39.4 % (42.0-52.0); Hemoglobin 14.6 g/dl (14.0-18.0); Immature Granulocytes # (auto) 0.13 K/uL (0.01-0.20); Immature Granulocytes % (auto) 1.0 %; Mean Corpuscular Hemoglobin 31.1 pg (25.0-34.0); Mean Corpuscular Volume 84.0 fL (80.0-100.0); Platelet Count 143 K/uL (130-400); RDW Standard Deviation 37.7 fL (36.4-46.3); Red Blood Count 4.69 M/uL (4.70-6.10); White Blood Count 12.60 K/ul (4.8-10.8)
[2025-04-06 18:13] LABS: Alanine Aminotransferase 84.0 U/L (7-52); Albumin Globulin Ratio 2.0 (0.9-2); Alkaline Phosphatase 72.0 U/L (34-104); Anion Gap 25.0 (3-11); Bilirubin,Total 2.0 mg/dl (0.2-1.0); Blood Urea Nitrogen 13.0 mg/dl (6-23); Calcium 10.2 mg/dl (8.6-10.3); Carbon Dioxide 26.0 mmol/L (21-32); Chloride 78.0 mmol/L (98-107); Creatine Kinase 275.0 U/L (30-223); Creatinine Clr Calc Pharmacy 101.4 ml/min; Globulin 2.4 gm/dl (2.5-4.0); Glucose 227.0 mg/dl (70-99(Fasting)); Magnesium 2.0 mg/dl (1.7-2.4); Potassium 2.7 mmol/L (3.5-5.1); Sodium 129.0 mmol/L (136-145); Total Protein 7.1 gm/dl (6.0-8.3)
--- NOTE | 2025-04-06 18:21 | CT Scan Report ---
Clinical History: Seizure. Technique: Axial computed tomography images were obtained of the brain from the vertex to the skull base without intravenous contrast. Findings: There is no sign of intracranial hemorrhage. There is normal lindsey-white matter differentiation with no sign of acute or old infarction. No midline shift or other form of herniation is identified. There is no hydrocephalus. No obvious mass lesion is seen on this noncontrast examination. The visualized portions of the orbits and paranasal sinuses appear unremarkable. The mastoid air cells appear clear Impression: Unremarkable noncontrast CT of the brain Electronically signed by Manfred Liu 04-06-2025 6:20 PM
[2025-04-06] MEDS: POTASSIUM CHLORIDE CRTAB 20 MEQ TABCR PO STA (18:34)
[2025-04-06] MEDS: POTASSIUM CHLORIDE / WTR 10 MEQ/100 ML PLCT IV SCH (18:34)
[2025-04-06] MEDS: THIAMINE HCL 500 MG in SODIUM CHLORIDE 0.9% 50 ML IV ONE (18:41)
--- NOTE | 2025-04-06 18:45 | XRay Report ---
Clinical History: Tachycardia and seizure Technique: A frontal view of the chest was obtained Findings: There are no confluent pulmonary infiltrates. The heart size is within normal limits. No pleural effusion or pneumothorax is seen. There is no definite pulmonary nodule. No fracture is noted. No foreign body is seen Impression: No active disease Electronically signed by Manfred Liu 04-06-2025 6:45 PM
[2025-04-06] MEDS: FOLIC ACID 1 MG TAB PO SCH (19:13)
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
[2025-04-06] MEDS ORDERED: DEXTROSE 50% 50 ML SYRINGE IV PRN (22:08)
[2025-04-06] MEDS ORDERED: GLUCOSE 10 TAB/TUBE PO PRN (22:08)
[2025-04-06] MEDS ORDERED: chlordiazePOXIDE ALCOHOL WITHDRAWL 50MG PO STA (22:08)
[2025-04-06] MEDS ORDERED: Ativan IV Alcohol Withdrawal--Active Protocol IV PRN (22:08)
[2025-04-06] MEDS ORDERED: CARBOHYDRATES FOR HYPOGLYCEMIA PO PRN (22:08)
[2025-04-06] MEDS ORDERED: GLUCAGON FOR INJ 1 MG VIAL SQ PRN (22:08)
[2025-04-06] MEDS ORDERED: GLUCOSE 40% GEL 15 GM TUBE PO PRN (22:08)
[2025-04-06] MEDS: ENOXAPARIN INJ 40 MG/0.4 ML SYR SQ SCH (22:42)
[2025-04-06] MEDS: POTASSIUM CHLORIDE CRTAB 20 MEQ TABCR PO ONE (22:43)
[2025-04-06] MEDS: 4.5GM X1 IV STA (22:43)
[2025-04-06] MEDS: INSULIN ASPART PER UNIT CHARGE SC SCH (23:26)
[2025-04-07] MEDS: PIPERACILLIN/TAZOBACTAM 4.5 GM/100 ML BAG IV SCH (04:03)
[2025-04-07 04:48] LABS: Appearance Urine Clear (Clear); Bacteria Urine Automated None Seen (None Seen); Cast Urine Automated 0-2 /lpf (0-2); Epithelial Cell Urine Auto 0-2 /hpf (0-2); Glucose Urine UA Negative (Negative); RBC Urine Automated 0-2 /hpf (0-2); WBC Urine Automated 0-5 /hpf (0-5)
[2025-04-07 06:20] LABS: Alanine Aminotransferase 53.0 U/L (7-52); Alkaline Phosphatase 51.0 U/L (34-104); Anion Gap 6.0 (3-11); Bilirubin,Total 1.6 mg/dl (0.2-1.0); Blood Urea Nitrogen 10.0 mg/dl (6-23); Calcium 8.4 mg/dl (8.6-10.3); Carbon Dioxide 28.0 mmol/L (21-32); Chloride 99.0 mmol/L (98-107); Creatinine Clr Calc Pharmacy 126.6 ml/min; Glucose 86.0 mg/dl (70-99(Fasting)); Magnesium 2.0 mg/dl (1.7-2.4); Potassium 3.4 mmol/L (3.5-5.1); Sodium 133.0 mmol/L (136-145); Total Protein 5.2 gm/dl (6.0-8.3)
[2025-04-07 06:32] LABS: Hematocrit (blood only) 32.3 % (42.0-52.0); Hemoglobin 11.8 g/dl (14.0-18.0); Immature Granulocytes # (auto) 0.03 K/uL (0.01-0.20); Immature Granulocytes % (auto) 0.5 %; Mean Corpuscular Hemoglobin 32.0 pg (25.0-34.0); Mean Corpuscular Volume 87.5 fL (80.0-100.0); Platelet Count 63 K/uL (130-400); RBC Morphology Unremarkable; RDW Standard Deviation 40.3 fL (36.4-46.3); Red Blood Count 3.69 M/uL (4.70-6.10); White Blood Count 5.81 K/ul (4.8-10.8)
[2025-04-07 06:42] LABS: Folate (Folic Acid),Ser orPlas 14.94 ng/ml (>5.38)
[2025-04-07 06:43] LABS: Vitamin B12 293.0 pg/ml (180-914)
[2025-04-07 06:55] LABS: Hemoglobin A1C 4.8 % (4.5-5.6)
[2025-04-07] MEDS ORDERED: PHENobarbital PO Alcohol Withdrawal PO STA (08:12)
[2025-04-07] MEDS: MULTIVITAMIN TAB PO SCH (08:24)
[2025-04-07] MEDS: THIAMINE HCL 100 MG TAB PO SCH (08:42)
[2025-04-07] MEDS ORDERED: FOLIC ACID 1 MG in SYRINGE 9.8 ML IV SCH (09:00)
[2025-04-07] MEDS ORDERED: THIAMINE HCL 100 MG in SYRINGE 9 ML IV SCH (09:00)
--- NOTE | 2025-04-07 11:24 | Hospitalist Progress Note ---
Date of Service April 07, 2025 Assessment & Plan (1) Alcohol withdrawal seizure with complication: (2) Alcohol use disorder, severe, dependence: (3) Elevated lactic acid level: (4) Depression with anxiety: (5) Hypokalemia: (6) Alcoholic liver damage: Plan Patient with known alcohol dependence and previous history of severe alcohol withdrawal had withdrawal seizures with an alcohol level of less than 10. Patient is continue to recover Transition to phenobarbital taper Troponins slightly elevated due to seizure, no need for cardiology consultation, no evidence of acute coronary syndrome PE patient's seizure activity due to alcohol withdrawal, no need for antiepileptics, no indication for neurology consultation Replace potassium, advance diet Case management to discuss possible inpatient alcohol rehab, patient has been at [facility] before Patient has been on naltrexone in the past has only taken the pills has never had the Depo injection. Would potentially consider this option. Not interested in Antabuse or acamprosate Admission and Anticipated Discharge Date Admission Date: April 06, 2025 Subjective Patient awake and alert this morning. Tolerating his diet. Minimal withdrawal symptoms. Patient reports he has been and [facility] in the past for inpatient alcohol rehab. May be interested in returning there. Physical Exam Physical Exam: Constitutional: Alert, nontoxic HEENT: Mucous membranes moist. Lungs: Clear to auscultation, decreased, no wheezes rales or rhonchi CV: S1-S2, regular Abdomen: Soft, nontender, nondistended Extremities: No significant edema Neuro: No focal deficits, minimal tremor Psych: Cooperative, normal mood Results & Data Results & Data Vital Signs (Past 12 Hours) Vital Signs Temp Pulse Resp BP Pulse Ox O2 Del Method 04/07/25 10:52 36.7 C 74 18 118/75 98 Room Air 04/07/25 07:53 36.8 C 76 18 127/75 100 Room Air 04/07/25 06:40 36.9 C 68 16 121/90 99 Room Air 04/07/25 02:21 37.2 C 75 18 135/89 97 Room Air Diagnostic Findings Reviewed imaging, laboratory and diagnostic studies. Pertinent findings as below. Hemoglobin 11.8, suspect baseline Platelets of 63 Potassium 3.4 Creatinine 0.62 LFTs reviewed B12 and folate within normal ranges Troponin 11.6, down trended
[2025-04-07] MEDS: POTASSIUM CHLORIDE CRTAB 20 MEQ TABCR PO SCH (11:33)
--- NOTE | 2025-04-07 16:03 | Electrocardiogram Report ---
Test Reason : Blood Pressure : */* mmHG Vent. Rate : 117 BPM Atrial Rate : 117 BPM P-R Int : 142 ms QRS Dur : 88 ms QT Int : 344 ms P-R-T Axes : 19 20 -20 degrees QTcB Int : 479 ms Sinus tachycardia Minimal voltage criteria for LVH, may be normal variant Septal infarct , age undetermined Abnormal ECG When compared with ECG of 15-Jan-2025 05:11, Septal infarct is now Present ST no longer elevated in Inferior leads ST now depressed in Lateral leads T wave inversion now evident in Inferior leads Nonspecific T wave abnormality now evident in Lateral leads Confirmed by Andrew Griffin ([id number]) on 04/07/2025 4:03:25 PM Referred By: REFERRED SELF Confirmed By: Andrew Griffin
[2025-04-08 06:39] LABS: Hematocrit (blood only) 35.0 % (42.0-52.0); Hemoglobin 12.7 g/dl (14.0-18.0); Mean Corpuscular Hemoglobin 31.6 pg (25.0-34.0); Mean Corpuscular Volume 87.1 fL (80.0-100.0); Platelet Count 80 K/uL (130-400); RDW Standard Deviation 39.8 fL (36.4-46.3); Red Blood Count 4.02 M/uL (4.70-6.10); White Blood Count 5.88 K/ul (4.8-10.8)
[2025-04-08 06:55] LABS: Anion Gap 6.0 (3-11); Blood Urea Nitrogen 9.0 mg/dl (6-23); Calcium 8.9 mg/dl (8.6-10.3); Carbon Dioxide 27.0 mmol/L (21-32); Chloride 98.0 mmol/L (98-107); Creatinine Clr Calc Pharmacy 128.1 ml/min; Glucose 67.0 mg/dl (70-99(Fasting)); Magnesium 2.0 mg/dl (1.7-2.4); Potassium 4.0 mmol/L (3.5-5.1); Sodium 131.0 mmol/L (136-145)
[2025-04-08] MEDS ORDERED: SODIUM PHOSPHATE 3 MMOL/1 ML INFUSION IV STA (07:58)
[2025-04-08] MEDS: SODIUM PHOSPHATE 9 MMOL in SODIUM CHLORIDE 0.9% 250 ML IV ONE (09:38)
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
--- NOTE | 2025-04-08 12:37 | Ultrasound Report ---
ULTRASOUND LEFT UPPER EXTREMITY VENOUS CLINICAL HISTORY: Bruising. COMPARISON STUDY: None. TECHNIQUE: Real-time, grayscale, and color Doppler sonography of the deep veins of the left upper ext remity is performed. Compression and augmentation were utilized. FINDINGS: No evidence of DVT seen in the left upper extremity. There is mild soft tissue edema in the region of bruising without significant soft tissue hematoma seen. IMPRESSION: No evidence of DVT seen. ACT 112: Act 112:Negative or not required by law. Electronically signed by: Manuel Aguilar M.D. 04/08/2025 12:36 PM
[2025-04-09 06:47] LABS: Hematocrit (blood only) 36.8 % (42.0-52.0); Hemoglobin 13.2 g/dl (14.0-18.0); Mean Corpuscular Hemoglobin 31.6 pg (25.0-34.0); Mean Corpuscular Volume 88.0 fL (80.0-100.0); Platelet Count 109 K/uL (130-400); RDW Standard Deviation 41.6 fL (36.4-46.3); Red Blood Count 4.18 M/uL (4.70-6.10); White Blood Count 5.27 K/ul (4.8-10.8)
[2025-04-09 07:04] LABS: Alanine Aminotransferase 62.0 U/L (7-52); Albumin Globulin Ratio 1.8 (0.9-2); Alkaline Phosphatase 63.0 U/L (34-104); Anion Gap 5.0 (3-11); Bilirubin,Total 0.8 mg/dl (0.2-1.0); Blood Urea Nitrogen 12.0 mg/dl (6-23); Calcium 9.2 mg/dl (8.6-10.3); Carbon Dioxide 26.0 mmol/L (21-32); Chloride 99.0 mmol/L (98-107); Creatinine Clr Calc Pharmacy 110.7 ml/min; Globulin 2.3 gm/dl (2.5-4.0); Glucose 74.0 mg/dl (70-99(Fasting)); Magnesium 2.1 mg/dl (1.7-2.4); Potassium 4.0 mmol/L (3.5-5.1); Sodium 130.0 mmol/L (136-145); Total Protein 6.5 gm/dl (6.0-8.3)
[2025-04-09] MEDS: VORTIOXETINE HYDROBROMIDE 5 MG TAB PO SCH (07:45)
[2025-04-09] MEDS: CYANOCOBALAMIN (B-12) 500 MCG TABLET PO SCH (07:46)
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
[2025-04-10 07:25] VITALS: BP 145/97; RESP 19; TEMP 97.5; O2SAT 98
[2025-04-10 08:01] LABS: Hematocrit (blood only) 38.5 % (42.0-52.0); Hemoglobin 13.5 g/dl (14.0-18.0); Mean Corpuscular Hemoglobin 31.3 pg (25.0-34.0); Mean Corpuscular Volume 89.1 fL (80.0-100.0); Platelet Count 158 K/uL (130-400); RDW Standard Deviation 42.9 fL (36.4-46.3); Red Blood Count 4.32 M/uL (4.70-6.10); White Blood Count 6.51 K/ul (4.8-10.8)
[2025-04-10 09:59] VITALS: PULSE 86
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
== END 2025-04-10 11:08 | disposition home or self-care (01) | DRG 101 ==
LOC: ED 17:18 → 2E 19:24 → SUATTDRO 19:24 → 2E 21:46

== ENCOUNTER 2025-06-12 20:26 | Observation (INO) ==
--- NOTE | 2025-06-12 20:32 | Emergency Department Note ---
Impression & Plan Alcohol abuse, Anemia, Adverse effect of mouthwash ED Provider Note ED Provider Note NAME: JALCYN SHEPHERD AGE:50 SEX: Male : 1975 ARRIVES VIA: EMS INFORMANT: Patient ED PROVIDER(s): Prince Ballard CHIEF COMPLAINT: Alcohol Abuse HPI: 50-year-old male presents emergency room with complaints of alcohol abuse. Patient reportedly was hanging out at [employer] this evening. Had been drinking mouthwash per the staff there. He had fallen asleep on the bench outside, they had checked on him and then called EMS. Patient himself has a history of alcohol abuse. PAST MEDICAL HISTORY:See Below PAST SURGICAL HISTORY:See Below FAMILY HISTORY:See Below SOCIAL HISTORY:See Below HOME MEDICATIONS:See Below ALLERGIES:See Below VITALS:See Below PHYSICAL EXAMINATION: GENERAL: Patient is thin, will open his eyes to painful stimuli, localizes painful stimuli. EYE EXAM: normal conjunctiva, PERRL OROPHARYNX: no exudate, no erythema, lips, buccal mucosa, and tongue normal and mucous membranes are moist NECK: supple, no nuchal rigidity, no adenopathy, non-tender LUNGS: Clear to auscultation. Normal chest wall mechanics, no w/r/r HEART: no murmurs, S1 normal and S2 normal ABDOMEN: abdomen soft, non-tender, normo-active bowel sounds, no masses, no rebound or guarding. BACK: Back is symmetrical on inspection and there is no deformity, no midline tenderness, no CVA tenderness. SKIN: no rashes, petechiae, orbruising UPPER EXTREMITIES: upper extremities are grossly normal. FROM, nml pulses b/l. LOWER EXTREMITIES: No pitting edema. FROM, nml pulses b/l. NEURO EXAM: Localizes painful stimuli, opens eyes to painful stimuli. Vital Signs: reviewed and remarkable Differential Diagnosis: Alcohol overdose, drug overdose MEDICAL DECISION MAKIN-year-old male presents emergency room with complaints of overdose. I spoke with patient about results and plan for admission, not sure he truly understands. Given patient's high alcohol level, we plan for an admission. He also is high risk, with history of alcohol withdrawal seizures. I spoke with the hospitalist, they will admit. ER Treatment Provided: See below Diagnostics Interpreted By Me: -Laboratory studies: As stated above and show below. Triage Nursing Note Reviewed Prior/Outside Records Reviewed Past Med/Surg History Problem List (Updated 06/12/25 @ 21:19 by Mia Ballard DO) Adverse effect of mouthwash (Acute) Anemia (Acute) Alcohol abuse (Acute) Alcoholic liver damage Hypokalemia Alcohol withdrawal seizure with complication Tachycardia (Acute) Acidosis, lactic (Acute) Acute dehydration (Acute) Acute hyponatremia (Acute) Acute hypokalemia (Acute) Seizure (Acute) Severe alcohol withdrawal delirium (Acute) Seizure Depression with anxiety Alcohol use disorder, severe, dependence Elevated LFTs Anoxic brain injury Toxic metabolic encephalopathy Respiratory failure requiring intubation Elevated lactic acid level (Acute) Endotracheally intubated (Acute) Alcohol intoxication (Acute) Unresponsive (Acute) Right inguinal hernia (Acute) Alcohol intoxication (Acute) Altered mental status (Acute) Medical History Alcohol abuse Depression Surgical History History of hernia repair Family History Grandfather (Maternal) FH: alcohol abuse Social History Smoking Status: Unknown if ever smoked Second Hand Exposure: No; Do You Dip or Chew Tobacco: No; Hx Alcohol Use: Yes Alcohol type: beer Hx Substance Use: No Preferred Language: Iraqi Communication Ability: Effective Dynamic Balancer Required: No Beliefs That Will Affect Care: None Current Living Situation: Alone Feels Safe at Home: Declines to Answer Assistive Devices: None Allergies Allergies Allergy/AdvReac Type Severity Reaction Status Date / Time No Known Allergies Allergy Verified 06/12/25 20:43 Home Meds Previous Rx's Medication Instructions Recorded clonidine HCl 0.1 mg 0.1 mg PO AMHS #30 tabs 04/10/25 tablet,extended release,12 hr vortioxetine 10 mg tablet 10 mg PO DAILY #30 tabs 04/10/25 (Trintellix) Results & Data (ED) Vital Signs Vital Signs - 24 hr 06/12/25 20:32 06/12/25 20:32 06/12/25 20:32 Temperature 36.0 C L Temperature Source Axillary Axillary Pulse Rate 79 Pulse Rate [Right Finger] 79 Pulse Rate from SpO2 Sensor Pulse Rhythm Respiratory Rate 16 16 Respiratory Effort / Characteristics Non-Labored Non-Labored Respiratory Depth Normal Normal Blood Pressure 126/92 Blood Pressure [Left Arm] 126/92 Blood Pressure Mean 103 Blood Pressure Mean [Left Arm] 103 Pulse Oximetry 94 94 94 Oxygen Delivery Method Room Air Room Air Room Air Sepsis Recent Fever Within 48 Hours No Sepsis New/Unexplained Change in Mental Status N/A Sepsis Action Taken by Nursing No Action Required 06/12/25 20:46 06/12/25 23:00 06/12/25 23:00 Temperature Temperature Source Pulse Rate 79 66 76 Pulse Rate [Right Finger] Pulse Rate from SpO2 Sensor 76 Pulse Rhythm Regular Respiratory Rate 16 18 12 Respiratory Effort / Characteristics Respiratory Depth Blood Pressure 117/85 Blood Pressure [Left Arm] Blood Pressure Mean 95 Blood Pressure Mean [Left Arm] Pulse Oximetry 94 98 98 Oxygen Delivery Method Room Air Room Air Room Air Sepsis Recent Fever Within 48 Hours Sepsis New/Unexplained Change in Mental Status Sepsis Action Taken by Nursing Laboratory Data 06/12/25 20:37 06/12/25 20:37 Lab Results 06/12/25 06/12/25 Range/Units 20:37 21:47 WBC 7.98 (4.8-10.8) K/ul RBC 4.08 L (4.70-6.10) M/uL Hgb 12.9 L (14.0-18.0) g/dl Hct 38.4 L (42.0-52.0) % MCV 94.1 (80.0-100.0) fL MCH 31.6 (25.0-34.0) pg MCHC 33.6 (32.0-36.0) g/dL RDW Std Deviation 44.6 (36.4-46.3) fL RDW Coeff of Janice 12.8 (11.5-14.5) % Plt Count 398 (130-400) K/uL MPV 7.8 L (9.4-12.4) fL Immature Gran % (Auto) 1.0 % Neut % (Auto) 61.9 % Lymph % (Auto) 26.8 % [place] % (Auto) 6.9 % Eos % (Auto) 1.9 % Baso % (Auto) 1.5 % Neut # (Auto) 4.94 (1.40-6.50) K/uL Lymph # (Auto) 2.14 (1.20-3.40) K/uL [place] # (Auto) 0.55 (0.11-0.59) K/uL Eos # (Auto) 0.15 (0.00-0.50) K/uL Baso # (Auto) 0.12 (0.00-0.20) K/uL Immature Gran # (Auto) 0.08 (0.01-0.20) K/uL Sodium 141 (136-145) mmol/L Potassium 3.5 (3.5-5.1) mmol/L Chloride 107 (98-107) mmol/L Carbon Dioxide 23 (21-32) mmol/L Anion Gap 11 (3-11) BUN 8 (6-23) mg/dl Creatinine 0.56 L (0.6-1.4) mg/dl Est Cr Clr Drug Dosing 141.9 ml/min eGFR 118.59 BUN/Creatinine Ratio 14.3 (10-20) Glucose 104 H (70-99(Fasting)) mg/dl Calcium 8.6 (8.6-10.3) mg/dl Total Bilirubin 0.3 (0.2-1.0) mg/dl AST 25 (13-39) U/L ALT 18 (7-52) U/L Alkaline Phosphatase 85 (34-104) U/L Total Protein 6.7 (6.0-8.3) gm/dl Albumin 3.6 (3.4-5.0) gm/dl Globulin 3.1 (2.5-4.0) gm/dl Albumin/Globulin Ratio 1.2 (0.9-2) Salicylates < 3.0 L (3.0-30) mg/dl Acetaminophen < 3 L (10-30) ug/ml Ethyl Alcohol mg/dL 429.2 H (<10.0) mg/dl Discharge Plan Visit Data Chief Complaint: Alcohol Intoxication Stated Complaint: ETOH ED Provider: Mai Ballard Discharge Problem: Alcohol abuse, Anemia, Adverse effect of mouthwash Patient Disposition: Admitted As Inpatient Condition: Fair Forms Stand Alone Forms: [facility] Prescriptions Prescriptions: No Action Trintellix 10 mg tablet 10 mg PO DAILY Qty: 30 0RF clonidine HCl 0.1 mg tablet extended release 12 hr 0.1 mg PO AMHS Qty: 30 0RF Referrals Referrals: Mainali,Nikki, MD [Primary Care Provider] -
[2025-06-12 20:51] LABS: Hematocrit (blood only) 38.4 % (42.0-52.0); Hemoglobin 12.9 g/dl (14.0-18.0); Immature Granulocytes # (auto) 0.08 K/uL (0.01-0.20); Immature Granulocytes % (auto) 1.0 %; Mean Corpuscular Hemoglobin 31.6 pg (25.0-34.0); Mean Corpuscular Volume 94.1 fL (80.0-100.0); Platelet Count 398 K/uL (130-400); RDW Standard Deviation 44.6 fL (36.4-46.3); Red Blood Count 4.08 M/uL (4.70-6.10); White Blood Count 7.98 K/ul (4.8-10.8)
[2025-06-12 21:08] LABS: Alanine Aminotransferase 18.0 U/L (7-52); Albumin Globulin Ratio 1.2 (0.9-2); Albumin Level 3.6 gm/dl (3.4-5.0); Alkaline Phosphatase 85.0 U/L (34-104); Anion Gap 11.0 (3-11); Bilirubin,Total 0.3 mg/dl (0.2-1.0); Blood Urea Nitrogen 8.0 mg/dl (6-23); Calcium 8.6 mg/dl (8.6-10.3); Carbon Dioxide 23.0 mmol/L (21-32); Chloride 107.0 mmol/L (98-107); Creatinine Clr Calc Pharmacy 141.9 ml/min; Globulin 3.1 gm/dl (2.5-4.0); Glucose 104.0 mg/dl (70-99(Fasting)); Potassium 3.5 mmol/L (3.5-5.1); Sodium 141.0 mmol/L (136-145); Total Protein 6.7 gm/dl (6.0-8.3)
[2025-06-12 22:43] LABS: Acetaminophen < 3 ug/ml (10-30); Salicylate < 3.0 mg/dl (3.0-30)
--- NOTE | 2025-06-12 23:40 | History & Physical Report ---
Date of Service June 12, 2025 Assessment & Plan (1) Alcohol intoxication: Plan: Assessment and plan below following discussion of case with ED provider and reviewing patient history/pertinent normal/abnormal diagnostic test results. Alcohol intoxication Patient verbalized desire to try to quit drinking. History alcohol withdrawal seizures hypertension, stable off maintenance medications chronic anemia, hemoglobin at baseline anxiety/mood disorder, not on maintenance medications as per patient preference Admit to med/tele [facility] S at risk protocol, DT precautions DVT prophylaxis per Lovenox subcu Full code Text document was generated using [employer] voice recognition software. It may contain grammatical or spelling errors. Kindly contact undersigned for clarification of any documentation item in question. History of Present Illness Chief Complaint: I was drinking too much Primary Care Provider: Nikki Canas MD History obtained from patient and records. Medical history significant for hypertension, chronic anemia (baseline hemoglobin 12-13), history of alcohol withdrawal seizures, anxiety/mood disorder, ongoing alcohol use. Last confinement March 2025 for alcohol withdrawal seizures. Patient refused inpatient alcohol rehab. Patient started drinking again shortly after being discharged from the hospital. [facility] Patient fell asleep on the bench outside. No witnessed seizures. EMS called by gas station employees. Patient denies headache, chest pain, SOB, syncope, abdominal pain. Denies tongue biting or incontinence. Patient denies suicidality. He knows he drinks a lot because he likes to. 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 Allergies Allergy/AdvReac Type Severity Reaction Status Date / Time No Known Allergies Allergy Verified 06/12/25 23:58 Home Medications Medication Instructions Recorded Confirmed Type No Known Home Medications 06/12/25 06/12/25 History Past Med/Surg History Problem List (Updated 06/13/25 @ 00:53 by Jayant Licea MD) Alcohol intoxication Adverse effect of mouthwash (Acute) Anemia (Acute) Alcohol abuse (Acute) Alcoholic liver damage Hypokalemia Alcohol withdrawal seizure with complication Tachycardia (Acute) Acidosis, lactic (Acute) Acute dehydration (Acute) Acute hyponatremia (Acute) Acute hypokalemia (Acute) Seizure (Acute) Severe alcohol withdrawal delirium (Acute) Seizure Depression with anxiety Alcohol use disorder, severe, dependence Elevated LFTs Anoxic brain injury Toxic metabolic encephalopathy Respiratory failure requiring intubation Elevated lactic acid level (Acute) Endotracheally intubated (Acute) Alcohol intoxication (Acute) Unresponsive (Acute) Right inguinal hernia (Acute) Alcohol intoxication (Acute) Altered mental status (Acute) Medical History Alcohol abuse Depression Surgical History History of hernia repair Family History Grandfather (Maternal) FH: alcohol abuse Social History Smoking Status: Unknown if ever smoked Second Hand Exposure: No; Do You Dip or Chew Tobacco: No; Hx Alcohol Use: Yes Alcohol type: beer Hx Substance Use: No Preferred Language: Welsh Communication Ability: Effective Accessibility Lift Technician Required: No Beliefs That Will Affect Care: None Current Living Situation: Alone Feels Safe at Home: Declines to Answer Assistive Devices: None Review of Systems Review of Systems: As per HPI, all other systems reviewed and negative Physical Exam Physical Exam: GENERAL: Comfortable, pleasant, alcoholic fetor, no respiratory distress SKIN: Pallor, warm HEENT: Pale palpebral conjunctivae, no ptosis, dry buccal mucosa NECK : Supple, no tenderness CHEST : CTA, no tenderness HEART : RRR, no obvious murmurs ABDOMEN: Some distention, nontender EXTREMITIES : No LE swelling/tenderness, palpable pulses, no other conspicuous deformities noted NEUROLOGIC : Coherent, no facial asymmetry, no other gross focality Results & Data Results & Data Vital Signs (Past 12 Hours) Vital Signs Temp Pulse Pulse Resp BP BP Pulse Ox 06/12/25 23:00 76 12 117/85 98 06/12/25 23:00 66 18 98 06/12/25 20:46 79 16 94 06/12/25 20:32 36.0 C L 79 16 126/92 94 06/12/25 20:32 94 06/12/25 20:32 79 16 126/92 94 O2 Del Method 06/12/25 23:00 Room Air 06/12/25 23:00 Room Air 06/12/25 20:46 Room Air 06/12/25 20:32 Room Air 06/12/25 20:32 Room Air 06/12/25 20:32 Room Air Laboratory Results Laboratory Results WBC 7.98 K/ul (4.8-10.8) 06/12/25 20:37 RBC 4.08 M/uL (4.70-6.10) L 06/12/25 20:37 Hgb 12.9 g/dl (14.0-18.0) L 06/12/25 20:37 Hct 38.4 % (42.0-52.0) L 06/12/25 20:37 MCV 94.1 fL (80.0-100.0) 06/12/25 20:37 MCH 31.6 pg (25.0-34.0) 06/12/25 20:37 MCHC 33.6 g/dL (32.0-36.0) 06/12/25 20:37 RDW Std Deviation 44.6 fL (36.4-46.3) 06/12/25 20:37 RDW Coeff of Janice 12.8 % (11.5-14.5) 06/12/25 20:37 Plt Count 398 K/uL (130-400) 06/12/25 20:37 MPV 7.8 fL (9.4-12.4) L 06/12/25 20:37 Immature Gran % (Auto) 1.0 % 06/12/25 20:37 Neut % (Auto) 61.9 % 06/12/25 20:37 Lymph % (Auto) 26.8 % 06/12/25 20:37 [place] % (Auto) 6.9 % 06/12/25 20:37 Eos % (Auto) 1.9 % 06/12/25 20:37 Baso % (Auto) 1.5 % 06/12/25 20:37 Neut # (Auto) 4.94 K/uL (1.40-6.50) 06/12/25 20:37 Lymph # (Auto) 2.14 K/uL (1.20-3.40) 06/12/25 20:37 [place] # (Auto) 0.55 K/uL (0.11-0.59) 06/12/25 20:37 Eos # (Auto) 0.15 K/uL (0.00-0.50) 06/12/25 20:37 Baso # (Auto) 0.12 K/uL (0.00-0.20) 06/12/25 20:37 Immature Gran # (Auto) 0.08 K/uL (0.01-0.20) 06/12/25 20:37 Sodium 141 mmol/L (136-145) 06/12/25 20:37 Potassium 3.5 mmol/L (3.5-5.1) 06/12/25 20:37 Chloride 107 mmol/L (98-107) 06/12/25 20:37 Carbon Dioxide 23 mmol/L (21-32) 06/12/25 20:37 Anion Gap 11 (3-11) 06/12/25 20:37 BUN 8 mg/dl (6-23) 06/12/25 20:37 Creatinine 0.56 mg/dl (0.6-1.4) L 06/12/25 20:37 Est Cr Clr Drug Dosing 141.9 ml/min 06/12/25 20:37 eGFR 118.59 06/12/25 20:37 BUN/Creatinine Ratio 14.3 (10-20) 06/12/25 20:37 Glucose 104 mg/dl (70-99(Fasting)) H 06/12/25 20:37 Calcium 8.6 mg/dl (8.6-10.3) 06/12/25 20:37 Total Bilirubin 0.3 mg/dl (0.2-1.0) 06/12/25 20:37 AST 25 U/L (13-39) 06/12/25 20:37 ALT 18 U/L (7-52) 06/12/25 20:37 Alkaline Phosphatase 85 U/L (34-104) 06/12/25 20:37 Total Protein 6.7 gm/dl (6.0-8.3) 06/12/25 20:37 Albumin 3.6 gm/dl (3.4-5.0) 06/12/25 20:37 Globulin 3.1 gm/dl (2.5-4.0) 06/12/25 20:37 Albumin/Globulin Ratio 1.2 (0.9-2) 06/12/25 20:37 Salicylates < 3.0 mg/dl (3.0-30) L 06/12/25 21:47 Acetaminophen < 3 ug/ml (10-30) L 06/12/25 21:47 Ethyl Alcohol mg/dL 429.2 mg/dl (<10.0) H 06/12/25 20:37
[2025-06-12] MEDS ORDERED: LORazepam Inj 1 MG in SYRINGE 0.5 ML IV PRN (23:42)
[2025-06-12] MEDS ORDERED: ACETAMINOPHEN 325 MG TAB PO PRN (23:42)
[2025-06-12] MEDS ORDERED: PROMETHAZINE 6.25 MG/50.25 ML BAG IV PRN (23:42)
[2025-06-12 23:55] LABS: Magnesium 2.0 mg/dl (1.7-2.4)
[2025-06-13] MEDS: LACTATED RINGER'S 1,000 ML IV STA (00:14)
[2025-06-13] MEDS: THIAMINE HCL 100 MG in SYRINGE 9 ML IV STA (00:35)
[2025-06-13] MEDS ORDERED: LORazepam Inj 1 MG in SYRINGE 0.5 ML IV PRN (00:54)
[2025-06-13 04:43] LABS: Hematocrit (blood only) 36.2 % (42.0-52.0); Hemoglobin 12.9 g/dl (14.0-18.0); Immature Granulocytes # (auto) 0.03 K/uL (0.01-0.20); Immature Granulocytes % (auto) 0.6 %; Mean Corpuscular Hemoglobin 33.2 pg (25.0-34.0); Mean Corpuscular Volume 93.1 fL (80.0-100.0); Platelet Count 367 K/uL (130-400); RDW Standard Deviation 42.8 fL (36.4-46.3); Red Blood Count 3.89 M/uL (4.70-6.10); White Blood Count 5.30 K/ul (4.8-10.8)
[2025-06-13 04:58] LABS: Anion Gap 9.0 (3-11); Blood Urea Nitrogen 7.0 mg/dl (6-23); Calcium 8.6 mg/dl (8.6-10.3); Carbon Dioxide 24.0 mmol/L (21-32); Chloride 108.0 mmol/L (98-107); Creatinine Clr Calc Pharmacy 147.1 ml/min; Glucose 86.0 mg/dl (70-99(Fasting)); Potassium 3.7 mmol/L (3.5-5.1); Sodium 141.0 mmol/L (136-145)
[2025-06-13] MEDS ORDERED: PHENobarbital PO Alcohol Withdrawal PO STA (05:22)
--- NOTE | 2025-06-13 06:01 | Communication Note ---
Date of Service: June 13, 2025 AWSS score of 8 as per RN. AP Alcohol withdrawal PCU transfer to facilitate IM phenobarbital protocol
[2025-06-13] MEDS: FOLIC ACID 1 MG TAB PO SCH (08:11)
[2025-06-13] MEDS: MULTIVITAMIN TAB PO SCH (08:11)
[2025-06-13] MEDS: THIAMINE HCL 100 MG TAB PO SCH (08:11)
[2025-06-13 08:31] VITALS: O2SAT 97
[2025-06-13 10:39] LABS: Amphetamines+Metham, Urine Neg (Neg); MDMA (Ecstacy), Urine Neg (Neg); Marijuana, Urine Neg (Neg)
[2025-06-13 11:59] VITALS: BP 148/108; RESP 21; TEMP 98.4
[2025-06-13 13:41] VITALS: PULSE 85
--- NOTE | 2025-06-13 16:45 | Hospitalist Progress Note ---
Date of Service June 13, 2025 Assessment & Plan (1) Alcohol intoxication: Plan: Per admitting service notes with addendum: Alcohol intoxication Patient verbalized desire to try to quit drinking. --Patient's LAKESHA score 1 for mild anxiety Received 1 dose of IM phenobarbital 60 mg Patient adamantly requesting to be discharged today due to work related matters Discussed the need for him to be further observed in the hospital given withdrawal symptoms this morning, and receiving phenobarbital Patient strongly declined to be further admitted Explained risks of signing out AGAINST MEDICAL ADVICE including seizures, unconsciousness, organ failure, paralysis or even Patient is awake alert oriented x 3, able to state his current medical condition, benefits of treatment, and consequences if he does not receive proper treatment and leaving AGAINST MEDICAL ADVICE History alcohol withdrawal seizures hypertension, stable off maintenance medications chronic anemia, hemoglobin at baseline anxiety/mood disorder, not on maintenance medications as per patient preference DVT prophylaxis per Lovenox subcu Full code Admission and Anticipated Discharge Date Admission Date: June 12, 2025 Subjective seen resting in bed, comfortable States he feels fine overall Denies tremors, sweating, confusion, anxiety, hallucinations Denies shortness of breath, chest pain, dizziness, palpitations No abdominal pain, nausea or vomiting No other new symptoms States last thing he recalls was being in [employer], charging his phone, drinking vodka Review of Systems Review of Systems: all noted and negative except for above Physical Exam Physical Exam: General- oriented x 3, not in distress, speaks in sentences with no effort or accessory muscle use Eyes- anicteric Neck- no JVD Lungs- clear breath sounds bilaterally, no rales/wheezes Heart- normal rate, regular rhythm; no murmurs Abdomen- normal bowel sounds, nondistended, soft, nontender Extremities- no pretibial edema, no calf tenderness no tremors Neuro- alert, oriented x 3; no gross focal neurologic deficits Skin- warm & dry Results & Data Results & Data Vital Signs (Past 12 Hours) Vital Signs Temp Pulse Pulse Resp BP BP Pulse Ox 06/13/25 13:40 85 06/13/25 11:58 36.9 C 86 21 148/108 H 97 06/13/25 10:09 75 18 142/60 H 06/13/25 09:26 70 06/13/25 08:29 36.8 C 91 H 21 146/97 H 97 06/13/25 04:52 36.5 C 81 18 169/113 H 98 06/13/25 04:44 36.6 C O2 Del Method 06/13/25 13:40 06/13/25 11:58 Room Air 06/13/25 10:09 06/13/25 09:26 06/13/25 08:29 Room Air 06/13/25 04:52 Room Air 06/13/25 04:44 all noted and reviewed including below
--- NOTE | 2025-06-13 16:50 | Discharge Summary ---
Discharge Summary Date of Service June 13, 2025 Principal Dx & Hospital Course #1 = Principal Diagnosis (1) Alcohol intoxication: Per admitting service notes with addendum: Alcohol intoxication Patient verbalized desire to try to quit drinking. --Patient's LAKESHA score 1 for mild anxiety Received 1 dose of IM phenobarbital 60 mg Patient adamantly requesting to be discharged today due to work related matters Discussed the need for him to be further observed in the hospital given withdrawal symptoms this morning, and receiving phenobarbital Patient strongly declined to be further admitted Explained risks of signing out AGAINST MEDICAL ADVICE including seizures, unconsciousness, organ failure, paralysis or even Patient is awake alert oriented x 3, able to state his current medical condition, benefits of treatment, and consequences if he does not receive proper treatment and leaving AGAINST MEDICAL ADVICE History alcohol withdrawal seizures hypertension, stable off maintenance medications chronic anemia, hemoglobin at baseline anxiety/mood disorder, not on maintenance medications as per patient preference DVT prophylaxis per Lovenox subcu Full code Notes For Next Care Provider Medication Changes From Visit none Admission HPI Per Admitting Provider History obtained from patient and records. Medical history significant for hypertension, chronic anemia (baseline hemoglobin 12-13), history of alcohol withdrawal seizures, anxiety/mood disorder, ongoing alcohol use. Last confinement March 2025 for alcohol withdrawal seizures. Patient refused inpatient alcohol rehab. Patient started drinking again shortly after being discharged from the hospital. Patient drinking mouthwash at [facility] tonight. Patient fell asleep on the bench outside. No witnessed seizures. EMS called by gas station employees. Patient denies headache, chest pain, SOB, syncope, abdominal pain. Denies tongue biting or incontinence. Patient denies suicidality. He knows he drinks a lot because he likes to. 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 Admission Exam Per Admitting Provider GENERAL: Comfortable, pleasant, alcoholic fetor, no respiratory distress SKIN: Pallor, warm HEENT: Pale palpebral conjunctivae, no ptosis, dry buccal mucosa NECK : Supple, no tenderness CHEST : CTA, no tenderness HEART : RRR, no obvious murmurs ABDOMEN: Some distention, nontender EXTREMITIES : No LE swelling/tenderness, palpable pulses, no other conspicuous deformities noted NEUROLOGIC : Coherent, no facial asymmetry, no other gross focality Discharge Exam General- oriented x 3, not in distress, speaks in sentences with no effort or accessory muscle use Eyes- anicteric Neck- no JVD Lungs- clear breath sounds bilaterally, no rales/wheezes Heart- normal rate, regular rhythm; no murmurs Abdomen- normal bowel sounds, nondistended, soft, nontender Extremities- no pretibial edema, no calf tenderness no tremors Neuro- alert, oriented x 3; no gross focal neurologic deficits Skin- warm & dry Updated Medication List Medication Instructions Recorded Confirmed Type No Known Home Medications 06/12/25 06/12/25 History Hospital Stay Data Consultations 06/12/25 23:27 ED Decision to Admit Stat Total Time Total Time Spent Total Time Spent (In Minutes): 60 minutes
== END 2025-06-13 14:44 | disposition left against medical advice (07) | DRG 894 ==
LOC: ED 20:26 → 2W 23:41 → INTOOBSV 23:41 → 2W 06-13 04:44 → 2E 06-13 06:38